=== PATIENT | male | born 1950 | race Hispanic/Latino ===

== ENCOUNTER → 2019-04-02 | Outpatient (CLI) | payer OTHER, MEDICARE ==
--- NOTE | 2019-04-02 10:30 | NUR ---
MBSS COMPLETE. +S/S OF ASPIRATION WITH MIXED AND NON-TRANSIENT PENETRATION WITH THIN LIQUIDS. RECOMMEND MECHANICAL SOFT/CHOPPED, NECTAR-THICK LIQUID DIET; PILLS WHOLE WITH APPLESAUCE. PATIENT INFORMATION: Pt IS A 68 Y.O. MALE REFERRED FOR AN MBSS SECONDARY TO C/O CHOKING WITH FOOD. Pt WAS ACCOMPANIED BY SON TO MBSS. Pt WITH OBVIOUS DYSARTHRIC SPEECH AND SLOW AMBULATION REQUIRING CANE. Pt HAS A PAST MEDICAL HISTORY OF CVA X3 IN 1999, GERD. MBSS INTERPRETATION: Pt PRESENTS WITH MODERATE OROPHARYNGEAL DYSPHAGIA CAUSED BY DECREASED ORAL MOTOR COORDINATION, DECREASED TONGUE BASE RETRACTION, DELAYED PHARYNGEAL RESPONSE TIME, DECREASED HYO-LARYNGEAL APPROXIMATION, E/B POOLING IN TH VALLECULAE, INCREASED MASTICATION TIME, DECREASED ROTARY MOTION DURING MASTICATION, RESULTING IN EVA ASPIRATION WITH MIXED TEXTURE (COUGH RESPONSE), NON-TRANSIENT PENETRATION WITH THIN LIQUIDS VIA CUP SIP (SILENT). TRIALS: 1. TSP PUREED: GOOD 2. TSP PUDDING: GOOD 3. TSP MIXED: EVA ASPIRATION WITH COUGH RESPONSE 4. COOKIE: GOOD 5. CUP SIP THIN LIQUIDS: NON-TRANSIENT PENETRATION (SILENT) 6. CUP SIP NECTAR-THICK LIQUIDS: GOOD 7. CUP SIP NECTAR-THICK LIQUIDS: GOOD RECOMMENDATIONS: 1. MECHANICAL SOFT/CHOPPED, NECTAR-THICK LIQUID DIET; PILLS WHOLE WITH APPLESAUCE. 2. COMPENSATORY STRATEGIES (PROPHYLAXIS): *SEATED AT 90 DEGREE ANGLE *REMAIN UPRIGHT 30 MINUTES AFTER MEAL TIMES *NO MIXED TEXTURE *NO STRAW *RE-SWALLOW 3. SKILLED SPEECH THERAPY 2XWK TARGETING SWALLOWING G-CODES SWALLOWING: [id number] Addendum: 04/02/19 at 1424 by SUMI DILLARD, [facility] Amended: Links added.
== END | disposition home or self-care (01) ==
LOC: RAH 10:44
PROVIDERS: ATTEND Internal Medicine Gastroenterology
DX: R13.12 Dysphagia, oropharyngeal phase (principal); K21.9 Gastro-esophageal reflux disease without esophagitis
CPT/HCPCS: G8996; G8997; G8998; 74230; 92611

== ENCOUNTER 2019-04-08 07:24 | Day surgery (SDC) | payer OTHER, MEDICARE ==
[~2019-04-08] VITALS: Ht 154.9 cm; Wt 72.8 kg
[~2019-04-08 07:24] MED LIST: SODIUM CHLORIDE 0.9% 1000ML 1,000 ML IV ONE
[2019-04-08] MEDS ORDERED: OMEP-50 PO (08:48)
[2019-04-08] MEDS ORDERED: SIMV20TA6 PO (08:48)
[2019-04-08] MEDS ORDERED: VITAMIN D2 PO (08:48)
[2019-04-08] MEDS ORDERED: AMLO10TA7 PO (08:48)
[2019-04-08] MEDS ORDERED: FISH1CAP27 PO (08:48)
[2019-04-08] MEDS ORDERED: LISI40TA4 PO (08:48)
[2019-04-08] MEDS ORDERED: OXYB5TAB10 PO (08:48)
[2019-04-08] MEDS ORDERED: ASPI-555 PO (08:48)
[2019-04-08] MEDS ORDERED: METFORMIN (08:49)
[2019-04-08 10:22] VITALS: BP 166/66
[2019-04-08 11:50] VITALS: BP 117/68
[2019-04-08 11:55] VITALS: BP 119/67
[2019-04-08 12:00] VITALS: BP 100/67
[2019-04-08 12:05] VITALS: BP 108/67
== END 2019-04-08 12:10 | disposition home or self-care (01) ==
LOC: ENDO 07:24 → DAH 07:24 → ENDO 12:10
PROVIDERS: ATTEND Internal Medicine
DX: K29.50 Unspecified chronic gastritis without bleeding (principal); K44.9 Diaphragmatic hernia without obstruction or gangrene; K22.8 Other specified diseases of esophagus; K31.89 Other diseases of stomach and duodenum; R00.1 Bradycardia, unspecified; R13.12 Dysphagia, oropharyngeal phase; I10 Essential (primary) hypertension; K21.9 Gastro-esophageal reflux disease without esophagitis; E11.9 Type 2 diabetes mellitus without complications; Z86.73 Personal history of transient ischemic attack (TIA), and cerebral infarction without residual deficits; Z79.84 Long term (current) use of oral hypoglycemic drugs; Z79.82 Long term (current) use of aspirin; Z79.899 Other long term (current) drug therapy
CPT/HCPCS: 43239; 82948 ×2; 88305; 93005; A4606; J7030

== ENCOUNTER 2020-04-24 13:20 | Inpatient (IN) | payer OTHER, MEDICARE ==
[~2020-04-24] VITALS: Ht 157.5 cm; Wt 61.2 kg
[~2020-04-24 13:20] MED LIST changes: +AMLO10TA7 PO; +ASPI-556 PO; +FISH1CAP27 PO; +LISI40TA4 PO; +METFORMIN; +OMEP20CA12 PO; +OXYB5TAB15 PO; +SIMV-43 PO; -SODIUM CHLORIDE 0.9% 1000ML 1,000 ML IV ONE; +VITAMIN D2 PO
[2020-04-24 14:56] LABS: BASOPHILS % (AUTO) 0.2 % (0.0-5.0); EOSINOPHILS % (AUTO) 0.1 % (0.0-8.0); HEMATOCRIT 32.4 % (42-54); LYMPHOCYTES % (AUTO) 10.8 % (21.0-51.0); MEAN CORPUSCULAR HEMOGLOBIN 31.3 pg (27.0-33.0); MONOCYTES % (AUTO) 4.6 % (3.0-13.0); NEUTROPHILS % (AUTO) 83.8 % (40.0-77.0); PLATELET COUNT (AUTO) 289 K/uL (130-400); RED BLOOD CELL COUNT(AUTO) 3.52 MIL/uL (4.50-6.20); RED CELL DISTRIBUTION WIDTH 12.9 % (11.0-15.5); WHITE BLOOD COUNT (AUTO) 12.5 K/uL (4.8-10.8)
[2020-04-24 15:09] LABS: INR 1.02 (0.85-1.15); PARTIAL THROMBOPLASTIN TIME 30.8 SEC (26.3-35.5)
[2020-04-24 15:13] LABS: ABG HCO3 19.8 mmol/L (21.0-28.0); ABG OXYGEN SATURATION 96.6 % (95.0-99.0); ABG PCO2 27 mmHg (35-48)
[2020-04-24 15:18] LABS: CREATININE 1.3 mg/dL (0.5-1.5); POTASSIUM 5.7 mmol/L (3.5-5.1)
[2020-04-24] MEDS ORDERED: DOXYCYCLINE 100MG+NS 250ML 250 ML IV ONE (15:19)
[2020-04-24] MEDS ORDERED: DEXAMETHASONE SOD PHOSPHATE 10MG/ML 1ML VIAL ONE (15:19)
[2020-04-24 15:46] LABS: ALBUMIN 2.4 g/dL (3.5-5.0); BILIRUBIN,TOTAL 0.4 mg/dL (0.2-1.0); TOTAL PROTEIN, SERUM 7.7 g/dL (6.0-8.3)
[2020-04-24 15:52] LABS: TROPONIN I 2.6 ng/mL (0.00-0.06)
[2020-04-24] MEDS ORDERED: INSULIN HUMULIN R 100 UNIT/ML 3ML ONE (15:53)
[2020-04-24] MEDS ORDERED: NITROGLYCERIN 0.4 MG SL TAB SL PRN (17:00)
[2020-04-24] MEDS ORDERED: LACTULOSE 20 GM/30 ML UDCUP PO PRN (17:00)
[2020-04-24] MEDS ORDERED: ONDANSETRON HCL 4 MG/2 ML VIAL IV PRN (17:00)
[2020-04-24] MEDS ORDERED: ACETAMINOPHEN 325 MG TAB PO PRN (17:00)
[2020-04-24] MEDS ORDERED: ERGOCALCIFEROL (VITAMIN D2) 50,000 UNIT CAPSULE PO ONE (17:00)
[2020-04-24] MEDS: CEFTRIAXONE SODIUM 1 GM IVP SCH (17:00)
[2020-04-24] MEDS ORDERED: PHARMACY COMMUNICATION MISC SCH (17:15)
[2020-04-24] MEDS ORDERED: ERGOCALCIFEROL (VITAMIN D2) 50,000 UNIT CAPSULE ONE (17:58)
[2020-04-24] MEDS ORDERED: CEFTRIAXONE SODIUM 1 GM ONE (17:58)
[2020-04-24] MEDS: PHARMACY COMMUNICATION MISC SCH ×2 (18:00→22:00)
[2020-04-24] MEDS ORDERED: ASPIRIN 325 MG TABLET ONE (19:45)
[2020-04-24] MEDS ORDERED: ENOXAPARIN SODIUM 80 MG/0.8 ML SQ ONE (19:45)
[2020-04-24] MEDS ORDERED: METHYLPREDNISOLONE SOD SUCC 40MG/ML 1ML ONE (20:49)
[2020-04-24] MEDS ORDERED: FAMOTIDINE 20MG TAB 20 MG TAB ONE (20:49)
[2020-04-24] MEDS: DOXYCYCLINE HYCLATE 100 MG TABLET PO SCH (21:00)
[2020-04-24] MEDS: INSULIN HUMULIN R 100 UNIT/ML 3ML SQ SCH (21:00)
[2020-04-24] MEDS: METHYLPREDNISOLONE SOD SUCC 40MG/ML 1ML IVP SCH (21:00)
[2020-04-25] VITALS (7 sets, daily range): BP systolic 104–143; BP diastolic 63–72
[2020-04-25] MEDS: PHARMACY COMMUNICATION MISC SCH ×4 (01:00→12:40)
--- NOTE | 2020-04-25 02:31 | NUR ---
Accepting care of patient Received report from BELL Saldana and assumed care of pt. Pt stable, NAD noted or reported, pt resting in bed comfortably, respirations even and unlabored. Pt on tele monitoring, fall precautions in place. Will continue to monitor throughout shift.
[2020-04-25] MEDS: CEFTRIAXONE SODIUM 1 GM IVP SCH ×2 (04:49→18:25)
[2020-04-25] MEDS: INSULIN HUMULIN R 100 UNIT/ML 3ML SQ SCH ×4 (06:14→20:33)
[2020-04-25 06:20] LABS: BASOPHILS % (AUTO) 0.1 % (0.0-5.0); EOSINOPHILS % (AUTO) 1.5 % (0.0-8.0); HEMATOCRIT 30.3 % (42-54); LYMPHOCYTES % (AUTO) 7.2 % (21.0-51.0); MEAN CORPUSCULAR HEMOGLOBIN 31.7 pg (27.0-33.0); MEAN CORPUSCULAR HGB CONC 33.7 g/dL (32.0-36.0); MEAN CORPUSCULAR VOLUME 94.1 fL (79-99); MONOCYTES % (AUTO) 2.6 % (3.0-13.0); NEUTROPHILS % (AUTO) 88.2 % (40.0-77.0); PLATELET COUNT (AUTO) 253 K/uL (130-400); RED BLOOD CELL COUNT(AUTO) 3.22 MIL/uL (4.50-6.20); WHITE BLOOD COUNT (AUTO) 9.1 K/uL (4.8-10.8)
[2020-04-25 08:54] LABS: ALBUMIN 1.9 g/dL (3.5-5.0); BILIRUBIN,TOTAL 0.3 mg/dL (0.2-1.0); POTASSIUM 4.7 mmol/L (3.5-5.1); TOTAL PROTEIN, SERUM 6.7 g/dL (6.0-8.3)
[2020-04-25] MEDS ORDERED: ENOXAPARIN SODIUM 40 MG/0.4 ML SYRINGE SQ SCH ×2 (09:00)
[2020-04-25 09:05] LABS: TROPONIN I 1.05 ng/mL (0.00-0.06)
[2020-04-25] MEDS: ASCORBIC ACID 500 MG TAB PO SCH (09:22)
[2020-04-25] MEDS: FAMOTIDINE 20MG TAB 20 MG TAB PO SCH (09:22)
[2020-04-25] MEDS: METHYLPREDNISOLONE SOD SUCC 40MG/ML 1ML IVP SCH ×3 (09:22→20:03)
[2020-04-25] MEDS: DOXYCYCLINE HYCLATE 100 MG TABLET PO SCH ×2 (09:24→20:04)
[2020-04-25 09:26] LABS: CRP QUANTITATIVE 282.5 mg/L (0.00-9.0)
[2020-04-25] MEDS: ZINC SULFATE 220 CAPSULE PO SCH (12:36)
[2020-04-25] MEDS: ENOXAPARIN SODIUM 80 MG/0.8 ML SQ SCH ×2 (12:41→20:04)
[2020-04-25] MEDS ORDERED: COMPOUND IV REFRIGERATED 1 EACH IVSOLN MISC PRN (14:00)
[2020-04-25] MEDS ORDERED: REMDESIVIR (EUA) 520 200 MG in SODIUM CHLORIDE 0.9% 250 ML IV ONE ×2 (14:00)
--- NOTE | 2020-04-25 15:10 | NUR ---
DYSPHAGIA EVALUATION COMPLETED. +S/S OF ASPIRATION. RECOMMEND SHORT TERM ALTERNATE MEANS OF NUTRITION HYDRATION. PINION STAKER EDUCATED PATIENT ON RISKS AND CONSEQUENCES OF ASPIRATION. PINION STAKER REVIEWED RESULTS AND RECOMMENDATIONS WITH NURSE AND PATIENT AT BEDSIDE. PATIENT VOICED UNDERSTANDING AND AGREEMENT TO SHORT TERM ALTERNATE MEANS OF NUTRITION/HYDRATION WITH RE-EVALUATION WITHIN A WEEK OR WHEN STATUS IMPROVES. PINION STAKER WILL FOLLOW PATIENT FOR RE-EVALUATION. Addendum: 04/25/[address] EVETTE GARIBAY Amended: Links added.
[2020-04-25] MEDS ORDERED: SODIUM CHLORIDE 0.9% 1,000 ML IV SCH (15:45)
--- NOTE | 2020-04-25 17:35 | NUR ---
IA- CALL TO FLOR HORTON FOR DC PLANNING TRIED TO REACH JOHN , LISTED AT PERSON TO NOTIFY, NO ANSWER, CALL TO [place] STATES PATIENT LVIES WITH JOHN, HAS BEEN ACTIVE AND INDEPENDENT WITH A CANE ONLY, BUT LATELY HAS BECOME MUCH WEAKER. HOME IS SAFE & ACCESSIBLE WITH A SHOWER CHAIR; FOLLOWS WITH DR. ETHAN Preston THREE MONTHS, SONS DRIVE WHEN NEEDED. STATES BROTHER JOHN WITH IN PROICESS OF BECOMING PATIENT'S PROVIDER, THAT WAS TO START THIS MONTH- DOESN'T KNOW HOW MANY HOURS. DCP IS DEFINITELY TO HOME, CM TO FOLLOW JOHN CALLED SHORTLY AFTER AND UPDATED ON PLAN OF CARE. EMPHASIZED HE WAS THE PERSON TO NOTIFY FOR FATHERS STATUS Addendum: 04/26/20 at 0939 by HECTOR KEENE RN CM Amended: Links added.
[2020-04-25] MEDS: CLINDAMYCIN 600 MG/D5% WATER 50 ML IV SCH (22:05)
[2020-04-26 04:09] VITALS: BP 122/71
[2020-04-26] MEDS: CLINDAMYCIN 600 MG/D5% WATER 50 ML IV SCH ×3 (05:03→20:06)
[2020-04-26] MEDS: CEFTRIAXONE SODIUM 1 GM IVP SCH ×2 (05:03→16:01)
[2020-04-26] MEDS: PHARMACY COMMUNICATION MISC SCH (05:19)
[2020-04-26] MEDS: INSULIN HUMULIN R 100 UNIT/ML 3ML SQ SCH ×4 (06:08→21:00)
[2020-04-26 07:00] VITALS: BP 130/78
[2020-04-26 07:04] LABS: HEMATOCRIT 29.8 % (42-54); LYMPHOCYTES % (AUTO) 5.6 % (21.0-51.0); MEAN CORPUSCULAR HEMOGLOBIN 31.1 pg (27.0-33.0); MEAN CORPUSCULAR HGB CONC 33.6 g/dL (32.0-36.0); MEAN CORPUSCULAR VOLUME 92.5 fL (79-99); MONOCYTES % (AUTO) 3.2 % (3.0-13.0); NEUTROPHILS % (AUTO) 90.8 % (40.0-77.0); PLATELET COUNT (AUTO) 306 K/uL (130-400); RED BLOOD CELL COUNT(AUTO) 3.22 MIL/uL (4.50-6.20); RED CELL DISTRIBUTION WIDTH 12.9 % (11.0-15.5); WHITE BLOOD COUNT (AUTO) 12.1 K/uL (4.8-10.8)
[2020-04-26 07:38] LABS: BILIRUBIN,TOTAL 0.2 mg/dL (0.2-1.0); CREATININE 0.8 mg/dL (0.5-1.5); CRP QUANTITATIVE 170.3 mg/L (0.00-9.0); POTASSIUM 4.1 mmol/L (3.5-5.1); TOTAL PROTEIN, SERUM 6.8 g/dL (6.0-8.3)
[2020-04-26] MEDS: METHYLPREDNISOLONE SOD SUCC 40MG/ML 1ML IVP SCH ×3 (10:25→20:06)
[2020-04-26] MEDS: ASCORBIC ACID 500 MG TAB PO SCH (10:26)
[2020-04-26] MEDS: ASPIRIN 81MG TAB.CHEW PO SCH (10:26)
[2020-04-26] MEDS: ENOXAPARIN SODIUM 80 MG/0.8 ML SQ SCH ×2 (10:26→20:06)
[2020-04-26] MEDS: FAMOTIDINE 20MG TAB 20 MG TAB PO SCH (10:26)
[2020-04-26] MEDS: DOXYCYCLINE HYCLATE 100 MG TABLET PO SCH ×2 (10:26→20:06)
[2020-04-26] MEDS: ZINC SULFATE 220 CAPSULE PO SCH (10:29)
[2020-04-26 11:00] VITALS: BP 125/73
[2020-04-26] MEDS ORDERED: COMPOUND IV REFRIGERATED 1 EACH IVSOLN MISC PRN (12:15)
[2020-04-26] MEDS: REMDESIVIR (EUA) 520 100 MG in SODIUM CHLORIDE 0.9% 250 ML IV SCH (13:45)
--- NOTE | 2020-04-26 14:02 | NUR ---
RD NOTIFICATION - TUBE FEEDING Recommend Continuous tube feeding Vital AF 1.2 initiated at 15mls/hr. Goal rate of 45mls/hr. Flushes at 100mls Q6hrs. Recommendations faxed to [facility]B, ext [phone], RN notified. NUTRITION NOTE: Pt admitted with Respiratory failure. Positive for COVID-19. S/p ST eval;+S/S Aspiration, short term alternate means nutrition recommended. WBC 12.1, BG 179, ALb 2.0. RD to continue to monitor. Please notify as additional nutrition concerns arise. Thank you.
--- NOTE | 2020-04-26 14:46 | NUR ---
AT REQUEST OF RN MD , GETTER OPERATOR- CALL AT BEDSIDE TO DISCUSS ADVANCE DIRECTIVES WITH FLOR LOPEZ AND PATIENT, ON NON REBREATHER, ALERT AND ORIENTED RN GALDINO NEEDED TO EXPLAIN TO PATIENT HIS CHANCES OF BEING INTUBATED WERE HIGH. THIS CM GOT FLOR LOPEZ ON THE PHONE AND ADVANCE DIRECTIVES DISCUSSED WITH SON ON SPEAKER, EXPLAINING THE DIFFICULTY PATIENT HAD BREATHING. WHEN SON ASKED PATIENT DIRECTLY HOW HE WAS, PATIENT STATED "[place]"' SON ADVISED PATIENT TO SEB KRISHNAMURTHY; WHEN QUESTIONED PATIENT NODDED YES THAT HE WANTED TO BE ON A BREATHING MACHINE IF HE NEEDED IT. PATIENT ALSO VOICED THIS, BUT IT WAS HARD TO HEAR HIM. SON CONFIRMED THEIR DECISION VIA PHONE SON STATED- 'YOU DON'T UNDERSTAND, YOU SEE MY DAD HAS TO COME HOME SO HE CAN GO TO [place]' RN AND ADVISED PATIENT AND SON THAT MD WOULD CONTINUE TO AGGRESSIVELY TREAT PATIENTS BREATHING DIFFICULTIES PER THEIR WISHES Addendum: 04/26/20 at 1654 by HECTOR KEENE RN Amended: Links added.
[2020-04-26 16:00] VITALS: BP 115/69
[2020-04-26 20:00] VITALS: BP 118/70
[2020-04-27] VITALS: BP 112/62
[2020-04-27] MEDS: CLINDAMYCIN 600 MG/D5% WATER 50 ML IV SCH ×3 (03:54→20:13)
[2020-04-27] MEDS: CEFTRIAXONE SODIUM 1 GM IVP SCH ×2 (03:54→17:41)
[2020-04-27 04:00] VITALS: BP 128/75
[2020-04-27 04:19] LABS: HEMATOCRIT 31.9 % (42-54); LYMPHOCYTES % (AUTO) 8.5 % (21.0-51.0); MEAN CORPUSCULAR HEMOGLOBIN 30.9 pg (27.0-33.0); MEAN CORPUSCULAR HGB CONC 32.9 g/dL (32.0-36.0); MEAN CORPUSCULAR VOLUME 93.8 fL (79-99); PLATELET COUNT (AUTO) 305 K/uL (130-400); RED CELL DISTRIBUTION WIDTH 13.2 % (11.0-15.5); WHITE BLOOD COUNT (AUTO) 7.9 K/uL (4.8-10.8)
[2020-04-27 04:58] LABS: BILIRUBIN,TOTAL 0.2 mg/dL (0.2-1.0); CREATININE 0.9 mg/dL (0.5-1.5); CRP QUANTITATIVE 89.4 mg/L (0.00-9.0); POTASSIUM 4.3 mmol/L (3.5-5.1); TOTAL PROTEIN, SERUM 6.7 g/dL (6.0-8.3)
[2020-04-27] MEDS: INSULIN HUMULIN R 100 UNIT/ML 3ML SQ SCH ×3 (05:52→21:02)
[2020-04-27] MEDS: PHARMACY COMMUNICATION MISC SCH (05:52)
--- NOTE | 2020-04-27 06:16 | NUR ---
assessment pt. is alert and oriented times 3. no complaints of any pain. pt. is sating 98% no nonrebreather at 15 liters. ng tube with feedings at 30 now and 214T2pi flushes. am blood sugar was 193. i gave coverage. vitals stable will continue to monitor.
[2020-04-27 07:01] LABS: ABG BASE EXCESS -2.8 mmol/L (-2.0-3.0); ABG HCO3 21.2 mmol/L (21.0-28.0); ABG OXYGEN SATURATION 94.9 % (95.0-99.0); ABG PCO2 35 mmHg (35-48)
[2020-04-27 08:00] VITALS: BP 132/75
[2020-04-27] MEDS: FAMOTIDINE 20MG TAB 20 MG TAB PO SCH (09:24)
[2020-04-27] MEDS: METHYLPREDNISOLONE SOD SUCC 40MG/ML 1ML IVP SCH ×3 (09:24→20:12)
[2020-04-27] MEDS: ASCORBIC ACID 500 MG TAB PO SCH (09:25)
[2020-04-27] MEDS: DOXYCYCLINE HYCLATE 100 MG TABLET PO SCH ×2 (09:25→20:12)
[2020-04-27] MEDS: ENOXAPARIN SODIUM 80 MG/0.8 ML SQ SCH ×2 (09:25→20:13)
[2020-04-27] MEDS: ASPIRIN 81MG TAB.CHEW PO SCH (09:25)
[2020-04-27 11:30] VITALS: BP 139/78
[2020-04-27] MEDS: ZINC SULFATE 220 CAPSULE PO SCH (13:37)
[2020-04-27] MEDS: REMDESIVIR (EUA) 520 100 MG in SODIUM CHLORIDE 0.9% 250 ML IV SCH (13:38)
[2020-04-27 15:30] VITALS: BP 154/74
[2020-04-27 17:31] LABS: BASOPHILS % (AUTO) 0.2 % (0.0-5.0); HEMATOCRIT 34.1 % (42-54); LYMPHOCYTES % (AUTO) 6.3 % (21.0-51.0); MEAN CORPUSCULAR HGB CONC 33.1 g/dL (32.0-36.0); MEAN CORPUSCULAR VOLUME 93.7 fL (79-99); MONOCYTES % (AUTO) 1.2 % (3.0-13.0); NEUTROPHILS % (AUTO) 91.4 % (40.0-77.0); PLATELET COUNT (AUTO) 322 K/uL (130-400); RED BLOOD CELL COUNT(AUTO) 3.64 MIL/uL (4.50-6.20); RED CELL DISTRIBUTION WIDTH 13.1 % (11.0-15.5); WHITE BLOOD COUNT (AUTO) 6.6 K/uL (4.8-10.8)
[2020-04-27 20:22] VITALS: BP 150/70
[2020-04-28 00:17] VITALS: BP 134/68
[2020-04-28 03:38] VITALS: BP 146/72
[2020-04-28 04:26] LABS: HEMATOCRIT 33.1 % (42-54); LYMPHOCYTES % (AUTO) 10.7 % (21.0-51.0); MEAN CORPUSCULAR HEMOGLOBIN 30.9 pg (27.0-33.0); MEAN CORPUSCULAR HGB CONC 32.9 g/dL (32.0-36.0); MEAN CORPUSCULAR VOLUME 93.8 fL (79-99); MONOCYTES % (AUTO) 4.4 % (3.0-13.0); NEUTROPHILS % (AUTO) 84.2 % (40.0-77.0); PLATELET COUNT (AUTO) 353 K/uL (130-400); RED BLOOD CELL COUNT(AUTO) 3.53 MIL/uL (4.50-6.20); RED CELL DISTRIBUTION WIDTH 13.1 % (11.0-15.5)
[2020-04-28 04:43] LABS: ALBUMIN 2.1 g/dL (3.5-5.0); BILIRUBIN,DIRECT 0.1 mg/dL (0.0-0.3); BILIRUBIN,TOTAL 0.2 mg/dL (0.2-1.0); CREATININE 0.9 mg/dL (0.5-1.5); POTASSIUM 4.5 mmol/L (3.5-5.1); TOTAL PROTEIN, SERUM 6.9 g/dL (6.0-8.3)
[2020-04-28] MEDS: CLINDAMYCIN 600 MG/D5% WATER 50 ML IV SCH ×3 (05:32→21:05)
[2020-04-28] MEDS: CEFTRIAXONE SODIUM 1 GM IVP SCH ×2 (05:32→16:58)
[2020-04-28] MEDS: PHARMACY COMMUNICATION MISC SCH (05:33)
[2020-04-28] MEDS: INSULIN HUMULIN R 100 UNIT/ML 3ML SQ SCH ×5 (05:33→21:04)
--- NOTE | 2020-04-28 06:11 | NUR ---
assessment patient alert and oriented times 4 no complaints of any pain. patient is sating upper 90's on 15 liters of oxygen per nonrebreather. pt. had a loose bowel movement this morning. vitals are stable will continue to monitor.
[2020-04-28 08:00] VITALS: BP 152/79
[2020-04-28] MEDS: ASCORBIC ACID 500 MG TAB PO SCH (08:53)
[2020-04-28] MEDS: FAMOTIDINE 20MG TAB 20 MG TAB PO SCH (08:53)
[2020-04-28] MEDS: ASPIRIN 81MG TAB.CHEW PO SCH (08:53)
[2020-04-28] MEDS: ENOXAPARIN SODIUM 80 MG/0.8 ML SQ SCH ×2 (08:53→21:06)
[2020-04-28] MEDS: DOXYCYCLINE HYCLATE 100 MG TABLET PO SCH ×2 (08:53→21:07)
[2020-04-28] MEDS: METHYLPREDNISOLONE SOD SUCC 40MG/ML 1ML IVP SCH ×3 (08:54→21:07)
--- NOTE | 2020-04-28 10:40 | NUR ---
Shift note Pt lying in bed, alert and oriented. HOB elevated 45 degrees. Denies pain at this time. Pt frequently requests water. oral care provided several times during shift. Tolerating Remdesivir tx well, alond with feedings. UOP appears to be sufficient in briefs. Will continue to monitor.
[2020-04-28 11:53] VITALS: BP 139/74
[2020-04-28] MEDS: ZINC SULFATE 220 CAPSULE PO SCH (12:30)
[2020-04-28] MEDS: REMDESIVIR (EUA) 520 100 MG in SODIUM CHLORIDE 0.9% 250 ML IV SCH (14:00)
--- NOTE | 2020-04-28 15:13 | NUR ---
DYSPHAGIA RE-EVAL COMPLETED. +S/S OF ASPIRATION WITH LIQUIDS. RECOMMEND NPO, SHORT-TERM ALTERNATE MEANS OF NUTRITION/HYDRATION. RECOMMENDATIONS: 1. SKILLED SPEECH THERAPY TARGETING SWALLOWING. DYSPHAGIA THERAPY 3-5X WEEK TO INCREASE ORAL MOTOR STRENGTH AND PHARYNGEAL SWALLOW: LTG#1: Pt WILL TOLERATE LEAST RESTRICTIVE DIET TO MEET NUTRITION/HYDRATION WITH NO S/S OF ASPIRATION. LTG#2: SKILLED EDUCATION Pt/FAMILY/STAFF STG#1: Pt WILL PARTICIPATE IN LARYNGEAL ELEVATION/EXCURSION EXERCISES WITH 80% ACCURACY. STG#2: Pt WILL PARTICIPATE IN TONGUE BASE RETRACTION EXERCISES WITH 80% ACCURACY. STG#3: Pt WILL PARTICIPATE IN ORAL MOTOR EXERCISES WITH 80% ACCURACY. STG#4: Pt WILL PARTICIPATE IN THERAPEUTIC TRIALS OF ADVANCED TEXTURE OF PUREED, HONEY-THICK LIQUIDS VIA TSP WITH NO OVERT S/S OF ASPIRATION. STG#5: PT WILL BE ABLE TO PARTICIPATE IN RE-EVALUATION OF WHEN CURRENT RESPIRATORY STATUS IMPROVES. STG#6: SKILLED EDUCATION Pt/FAMILY/STAFF. Addendum: 04/28/20 at [address] Amended: Links added.
[2020-04-28 16:00] VITALS: BP 152/78
[2020-04-28 20:16] VITALS: BP 168/85
[2020-04-28] MEDS: INSULIN GLARGINE 100 UNITS/ML 10 ML VIAL SQ SCH (21:04)
[2020-04-28] MEDS: GUAIFENESIN 600 MG TABLET.ER PO SCH (21:06)
[2020-04-28] MEDS: GABAPENTIN 100 MG CAPSULE PO SCH (21:07)
[2020-04-29 00:16] VITALS: BP 156/77
[2020-04-29 04:16] VITALS: BP 135/71
[2020-04-29 04:52] LABS: BASOPHILS % (AUTO) 0.1 % (0.0-5.0); HEMATOCRIT 33.1 % (42-54); LYMPHOCYTES % (AUTO) 12.4 % (21.0-51.0); MEAN CORPUSCULAR HEMOGLOBIN 30.5 pg (27.0-33.0); MEAN CORPUSCULAR HGB CONC 33.2 g/dL (32.0-36.0); MEAN CORPUSCULAR VOLUME 91.7 fL (79-99); MONOCYTES % (AUTO) 1.3 % (3.0-13.0); NEUTROPHILS % (AUTO) 85.3 % (40.0-77.0); PLATELET COUNT (AUTO) 363 K/uL (130-400); RED BLOOD CELL COUNT(AUTO) 3.61 MIL/uL (4.50-6.20); RED CELL DISTRIBUTION WIDTH 13.1 % (11.0-15.5); WHITE BLOOD COUNT (AUTO) 6.7 K/uL (4.8-10.8)
[2020-04-29] MEDS: CEFTRIAXONE SODIUM 1 GM IVP SCH ×2 (05:36→16:52)
[2020-04-29] MEDS: CLINDAMYCIN 600 MG/D5% WATER 50 ML IV SCH ×2 (05:36→12:07)
[2020-04-29] MEDS: PHARMACY COMMUNICATION MISC SCH (05:36)
[2020-04-29 06:10] LABS: ALBUMIN 2.3 g/dL (3.5-5.0); BILIRUBIN,TOTAL 0.2 mg/dL (0.2-1.0); CREATININE 0.9 mg/dL (0.5-1.5); CRP QUANTITATIVE 35.2 mg/L (0.00-9.0); POTASSIUM 4.8 mmol/L (3.5-5.1); TOTAL PROTEIN, SERUM 6.9 g/dL (6.0-8.3)
[2020-04-29] MEDS: INSULIN HUMULIN R 100 UNIT/ML 3ML SQ SCH ×7 (07:01→20:32)
[2020-04-29 08:04] VITALS: BP 153/86
[2020-04-29] MEDS: FAMOTIDINE 20MG TAB 20 MG TAB PO SCH (09:20)
[2020-04-29] MEDS: METHYLPREDNISOLONE SOD SUCC 40MG/ML 1ML IVP SCH ×3 (09:20→20:32)
[2020-04-29] MEDS: GUAIFENESIN 600 MG TABLET.ER PO SCH ×2 (09:20→20:32)
[2020-04-29] MEDS: DOXYCYCLINE HYCLATE 100 MG TABLET PO SCH ×2 (09:21→20:32)
[2020-04-29] MEDS: ASPIRIN 81MG TAB.CHEW PO SCH (09:21)
[2020-04-29] MEDS: ASCORBIC ACID 500 MG TAB PO SCH (09:21)
[2020-04-29] MEDS: GABAPENTIN 100 MG CAPSULE PO SCH ×2 (09:21→20:32)
[2020-04-29] MEDS: ENOXAPARIN SODIUM 80 MG/0.8 ML SQ SCH ×2 (09:22→20:33)
[2020-04-29 11:39] VITALS: BP 148/86
[2020-04-29] MEDS: ZINC SULFATE 220 CAPSULE PO SCH (12:07)
--- NOTE | 2020-04-29 12:23 | NUR ---
DYSPHAGIA RE-EVAL COMPLETED. +S/S OF ASPIRATION WITH LIQUIDS AND SOLIDS. RECOMMEND PUREED, NECTAR-THICK LIQUIDS; PILLS CRUSHED WITH APPLESAUCE. RECOMMENDATIONS: 1. SKILLED SPEECH THERAPY TARGETING SWALLOWING. DYSPHAGIA THERAPY 3-5X WEEK TO INCREASE ORAL MOTOR STRENGTH AND PHARYNGEAL SWALLOW: LTG#1: Pt WILL TOLERATE LEAST RESTRICTIVE DIET TO MEET NUTRITION/HYDRATION WITH NO S/S OF ASPIRATION. LTG#2: SKILLED EDUCATION Pt/FAMILY/STAFF STG#1: Pt WILL PARTICIPATE IN LARYNGEAL ELEVATION/EXCURSION EXERCISES WITH 80% ACCURACY. STG#2: Pt WILL PARTICIPATE IN TONGUE BASE RETRACTION EXERCISES WITH 80% ACCURACY. STG#3: Pt WILL PARTICIPATE IN ORAL MOTOR EXERCISES WITH 80% ACCURACY. STG#4: Pt WILL PARTICIPATE IN THERAPEUTIC TRIALS OF ADVANCED TEXTURE OF MECHANICAL SOFT VIA TSP WITH NO OVERT S/S OF ASPIRATION. STG#5: PT WILL TOLERATE CURRENT DIET OF PUREED, NECTAR-THICK LIQUIDS WITH NO OVERT S/S OF ASPIRATION. STG#6: SKILLED EDUCATION Pt/FAMILY/STAFF. Addendum: 04/29/20 at [address] Amended: Links added.
[2020-04-29] MEDS: REMDESIVIR (EUA) 520 100 MG in SODIUM CHLORIDE 0.9% 250 ML IV SCH (13:45)
[2020-04-29 17:00] VITALS: BP 133/77
[2020-04-29 20:16] VITALS: BP 158/79
[2020-04-29] MEDS: INSULIN GLARGINE 100 UNITS/ML 10 ML VIAL SQ SCH (21:18)
[2020-04-29] MEDS ORDERED: SODIUM CHLORIDE 0.9% 250 ML IV ONE (22:07)
[2020-04-30 00:16] VITALS: BP 163/70
[2020-04-30] MEDS ORDERED: SODIUM CHLORIDE 0.9% 250 ML IV ONE (02:26)
[2020-04-30 04:16] VITALS: BP 146/64
--- NOTE | 2020-04-30 04:20 | NUR ---
Pt completed administration of x2 plasma units; no signs/symptoms of any adverse reactions and no distress noted; pt is currently resting in bed, respirations are even and unlabored; no distress noted at this time. BELL Be
[2020-04-30] MEDS: CEFTRIAXONE SODIUM 1 GM IVP SCH ×2 (04:37→16:56)
[2020-04-30] MEDS: PHARMACY COMMUNICATION MISC SCH (04:38)
[2020-04-30 05:37] LABS: BASOPHILS % (AUTO) 0.1 % (0.0-5.0); HEMATOCRIT 30.4 % (42-54); LYMPHOCYTES % (AUTO) 12.2 % (21.0-51.0); MEAN CORPUSCULAR HEMOGLOBIN 30.8 pg (27.0-33.0); MEAN CORPUSCULAR HGB CONC 33.2 g/dL (32.0-36.0); MEAN CORPUSCULAR VOLUME 92.7 fL (79-99); MONOCYTES % (AUTO) 4.2 % (3.0-13.0); NEUTROPHILS % (AUTO) 82.8 % (40.0-77.0); PLATELET COUNT (AUTO) 280 K/uL (130-400); RED BLOOD CELL COUNT(AUTO) 3.28 MIL/uL (4.50-6.20); RED CELL DISTRIBUTION WIDTH 13.2 % (11.0-15.5); WHITE BLOOD COUNT (AUTO) 8.2 K/uL (4.8-10.8)
[2020-04-30 05:59] LABS: LACTATE DEHYDROGENASE 283 U/L (81-234)
[2020-04-30] MEDS: INSULIN HUMULIN R 100 UNIT/ML 3ML SQ SCH ×7 (06:12→21:00)
[2020-04-30 08:00] VITALS: BP 137/72
[2020-04-30] MEDS: ENOXAPARIN SODIUM 80 MG/0.8 ML SQ SCH ×2 (08:56→22:05)
[2020-04-30] MEDS: METHYLPREDNISOLONE SOD SUCC 40MG/ML 1ML IVP SCH ×3 (08:56→22:05)
[2020-04-30] MEDS: DOXYCYCLINE HYCLATE 100 MG TABLET PO SCH ×2 (08:57→22:05)
[2020-04-30] MEDS: GUAIFENESIN 600 MG TABLET.ER PO SCH ×2 (08:57→22:05)
[2020-04-30] MEDS: ASPIRIN 81MG TAB.CHEW PO SCH (08:57)
[2020-04-30] MEDS: ASCORBIC ACID 500 MG TAB PO SCH (08:57)
[2020-04-30] MEDS: FAMOTIDINE 20MG TAB 20 MG TAB PO SCH (08:57)
[2020-04-30] MEDS: GABAPENTIN 100 MG CAPSULE PO SCH ×2 (08:58→22:05)
--- NOTE | 2020-04-30 12:02 | NUR ---
PHYSICIAN ROUNDS DR FANNIE WALLACE ROUNDED ON PATIENT REVIEWED RECORDS NO NEW ORDERS RECEIVED
[2020-04-30 12:15] VITALS: BP 138/71
[2020-04-30 14:00] VITALS: BP 153/90
[2020-04-30] MEDS: ZINC SULFATE 220 CAPSULE PO SCH (15:10)
[2020-04-30 20:00] VITALS: BP 169/84
[2020-04-30] MEDS: INSULIN GLARGINE 100 UNITS/ML 10 ML VIAL SQ SCH (22:04)
[2020-05-01] VITALS: BP 153/79
[2020-05-01 04:00] VITALS: BP 138/61
[2020-05-01 05:12] LABS: LACTATE DEHYDROGENASE 249 U/L (81-234)
[2020-05-01] MEDS: CEFTRIAXONE SODIUM 1 GM IVP SCH (05:39)
[2020-05-01] MEDS: INSULIN HUMULIN R 100 UNIT/ML 3ML SQ SCH ×7 (06:00→20:40)
[2020-05-01] MEDS: GUAIFENESIN 600 MG TABLET.ER PO SCH ×2 (08:27→19:31)
[2020-05-01] MEDS: ENOXAPARIN SODIUM 80 MG/0.8 ML SQ SCH ×2 (08:27→19:31)
[2020-05-01] MEDS: ASCORBIC ACID 500 MG TAB PO SCH (08:28)
[2020-05-01] MEDS: ASPIRIN 81MG TAB.CHEW PO SCH (08:28)
[2020-05-01] MEDS: FAMOTIDINE 20MG TAB 20 MG TAB PO SCH (08:28)
[2020-05-01] MEDS: DOXYCYCLINE HYCLATE 100 MG TABLET PO SCH (08:28)
[2020-05-01] MEDS: GABAPENTIN 100 MG CAPSULE PO SCH ×2 (08:28→19:31)
[2020-05-01] MEDS: METHYLPREDNISOLONE SOD SUCC 40MG/ML 1ML IVP SCH ×3 (08:28→19:31)
[2020-05-01 09:22] VITALS: BP 153/82
--- NOTE | 2020-05-01 09:50 | NUR ---
RAYMUNDO ROSALES CERTIFIED COURT INTERPRETER IS ROUNDING AT THIS TIME. NEUROSX CONSULT STILL PENDING ORDERED BY DR. GAONA. PER CERTIFIED COURT INTERPRETER, WAIT FOR DR. Buckley TO ROUND THIS AFTERNOON AND WILL DECIDE IF NEUROSX STILL NEEDS TO BE CONSULTED.
--- NOTE | 2020-05-01 10:39 | NUR ---
WEANED PT OFF NON-REBREATHER. HE IS CURRENTLY ON 4L PER NASAL CANNULA. O2 SAT: 100%. PT IS ASLEEP AT THIS TIME. WILL CONTINUE TO MONITOR.
[2020-05-01] MEDS: AMLODIPINE BESYLATE 5 MG TAB PO SCH (11:35)
[2020-05-01] MEDS: LISINOPRIL 40 MG TABLET PO SCH (11:36)
[2020-05-01] MEDS: ZINC SULFATE 220 CAPSULE PO SCH (11:36)
[2020-05-01 12:36] VITALS: BP 137/64
--- NOTE | 2020-05-01 12:38 | NUR ---
DR. GRECO IS IN TO SEE PATIENT. PER MD, CULTURE WAS A CONTAMINANT. CONTINUE CURRENT ANTIBIOTICS.
[2020-05-01 16:00] VITALS: BP 133/66
--- NOTE | 2020-05-01 16:11 | NUR ---
SPOKE WITH DR. MEIER AND INFORMED MD OF THE CONSULT FOR COMPRESSION FX. INFORMED MD THAT PATIENT IS COVID-19 POSITIVE. PER MD, LSO BRACE MUST BE APPLIED AT THIS TIME. PT WILL HAVE TO F/U WITH HIM IN OFFICE IN 2 WEEKS. MRI OF LUMBAR SPINE ALSO ORDERED.
[2020-05-01] MEDS: INSULIN GLARGINE 100 UNITS/ML 10 ML VIAL SQ SCH (20:40)
[2020-05-01 21:10] VITALS: BP 130/68
[2020-05-02 01:00] VITALS: BP 132/69
[2020-05-02 03:15] LABS: BASOPHILS % (AUTO) 0.1 % (0.0-5.0); HEMATOCRIT 34.2 % (42-54); LYMPHOCYTES % (AUTO) 13.4 % (21.0-51.0); MEAN CORPUSCULAR HEMOGLOBIN 30.7 pg (27.0-33.0); MEAN CORPUSCULAR HGB CONC 33.6 g/dL (32.0-36.0); MEAN CORPUSCULAR VOLUME 91.4 fL (79-99); MONOCYTES % (AUTO) 4.4 % (3.0-13.0); NEUTROPHILS % (AUTO) 81.1 % (40.0-77.0); PLATELET COUNT (AUTO) 313 K/uL (130-400); RED BLOOD CELL COUNT(AUTO) 3.74 MIL/uL (4.50-6.20); RED CELL DISTRIBUTION WIDTH 13.4 % (11.0-15.5); WHITE BLOOD COUNT (AUTO) 7.7 K/uL (4.8-10.8)
[2020-05-02 03:31] LABS: ALBUMIN 2.3 g/dL (3.5-5.0); BILIRUBIN,TOTAL 0.2 mg/dL (0.2-1.0); CREATININE 0.7 mg/dL (0.5-1.5); CRP QUANTITATIVE 8.9 mg/L (0.00-9.0); POTASSIUM 4.4 mmol/L (3.5-5.1); TOTAL PROTEIN, SERUM 6.4 g/dL (6.0-8.3)
[2020-05-02] MEDS: INSULIN HUMULIN R 100 UNIT/ML 3ML SQ SCH ×7 (05:25→21:30)
[2020-05-02 06:09] VITALS: BP 122/57
--- NOTE | 2020-05-02 06:39 | NUR ---
assessment Pt. is alert and oriented times 4. No complaints of any pain. patient is sating 92% on 2 liters nasal canula. am blood sugar is 129. No coverage needed. vitals are stable will continue to monitor.
[2020-05-02 08:00] VITALS: BP 127/66
[2020-05-02] MEDS: AMLODIPINE BESYLATE 5 MG TAB PO SCH (08:44)
[2020-05-02] MEDS: GUAIFENESIN 600 MG TABLET.ER PO SCH ×2 (08:44→21:00)
[2020-05-02] MEDS: LISINOPRIL 40 MG TABLET PO SCH (08:44)
[2020-05-02] MEDS: FAMOTIDINE 20MG TAB 20 MG TAB PO SCH (08:44)
[2020-05-02] MEDS: GABAPENTIN 100 MG CAPSULE PO SCH ×2 (08:44→21:00)
[2020-05-02] MEDS: ASCORBIC ACID 500 MG TAB PO SCH (08:44)
[2020-05-02] MEDS: ASPIRIN 81MG TAB.CHEW PO SCH (08:44)
[2020-05-02] MEDS: ENOXAPARIN SODIUM 80 MG/0.8 ML SQ SCH ×2 (08:44→21:05)
[2020-05-02] MEDS: METHYLPREDNISOLONE SOD SUCC 40MG/ML 1ML IVP SCH ×3 (08:46→21:00)
[2020-05-02 11:02] VITALS: BP 122/66
[2020-05-02] MEDS: ZINC SULFATE 220 CAPSULE PO SCH (15:34)
[2020-05-02 15:55] VITALS: BP 113/55
[2020-05-02 19:55] VITALS: BP 135/62
[2020-05-02] MEDS: INSULIN GLARGINE 100 UNITS/ML 10 ML VIAL SQ SCH (21:30)
[2020-05-03 00:10] VITALS: BP 130/52
--- NOTE | 2020-05-03 02:26 | NUR ---
Pts pulse ox/HR monitor alarming for HR = 48; pt is arousable and HR increases to 53-54bbm; pt is diaphoretic, BS = 231 at this time (decrease from 333 prior to bed when pt received 7 units Humulin R and 15u lantus); pt refuses a wipe down/bedbath at this time ; pt denies any requests and/or complaints at this time; will continue to monitor throughout shift. Haile, RN
[2020-05-03] MEDS: INSULIN HUMULIN R 100 UNIT/ML 3ML SQ SCH ×7 (06:20→20:13)
[2020-05-03 06:31] VITALS: BP 122/57
[2020-05-03 06:36] LABS: BASOPHILS % (AUTO) 0.1 % (0.0-5.0); HEMATOCRIT 34.7 % (42-54); LYMPHOCYTES % (AUTO) 12.4 % (21.0-51.0); MEAN CORPUSCULAR HEMOGLOBIN 31.1 pg (27.0-33.0); MEAN CORPUSCULAR HGB CONC 33.4 g/dL (32.0-36.0); MONOCYTES % (AUTO) 3.6 % (3.0-13.0); PLATELET COUNT (AUTO) 307 K/uL (130-400); RED BLOOD CELL COUNT(AUTO) 3.73 MIL/uL (4.50-6.20); RED CELL DISTRIBUTION WIDTH 13.3 % (11.0-15.5); WHITE BLOOD COUNT (AUTO) 6.9 K/uL (4.8-10.8)
[2020-05-03 07:33] LABS: CRP QUANTITATIVE 7.2 mg/L (0.00-9.0)
[2020-05-03 08:00] VITALS: BP 125/55
[2020-05-03] MEDS: GABAPENTIN 100 MG CAPSULE PO SCH ×2 (08:41→20:12)
[2020-05-03] MEDS: ASPIRIN 81MG TAB.CHEW PO SCH (08:41)
[2020-05-03] MEDS: AMLODIPINE BESYLATE 5 MG TAB PO SCH (08:41)
[2020-05-03] MEDS: FAMOTIDINE 20MG TAB 20 MG TAB PO SCH (08:41)
[2020-05-03] MEDS: LISINOPRIL 40 MG TABLET PO SCH (08:42)
[2020-05-03] MEDS: GUAIFENESIN 600 MG TABLET.ER PO SCH ×2 (08:42→20:12)
[2020-05-03] MEDS: METHYLPREDNISOLONE SOD SUCC 40MG/ML 1ML IVP SCH ×3 (08:42→20:12)
[2020-05-03] MEDS: ASCORBIC ACID 500 MG TAB PO SCH (08:42)
[2020-05-03] MEDS: ENOXAPARIN SODIUM 80 MG/0.8 ML SQ SCH ×2 (08:43→20:14)
[2020-05-03 08:59] LABS: ALBUMIN 2.4 g/dL (3.5-5.0); BILIRUBIN,TOTAL 0.3 mg/dL (0.2-1.0); CREATININE 0.9 mg/dL (0.5-1.5); POTASSIUM 4.7 mmol/L (3.5-5.1); TOTAL PROTEIN, SERUM 6.1 g/dL (6.0-8.3)
[2020-05-03 12:00] VITALS: BP 127/55
[2020-05-03] MEDS: ZINC SULFATE 220 CAPSULE PO SCH (12:21)
--- NOTE | 2020-05-03 12:37 | NUR ---
DR. GRECO IN TO SEE PT. WANTS PT TO START WORKING WITH PT.
--- NOTE | 2020-05-03 13:29 | NUR ---
FOLLOW UP. Pt SLEEPING AT THE TIME OF THE SESSION. HOLD TREATMENT, NO FOOD OR LIQUID PROVIDED. OUTSIDE MACHINIST HELPER COORDINATED WITH NURSE ASHLEE. NURSE REPORTS Pt WAS ABLE TO FEED HIMSELF THIS AM. Pt TOLERATING PUREED AND NECTAR-THICK LIQUIDS. RECOMMEND CONTINUED DIET. Pt CURRENTLY ON NASAL CANNULA, IMPROVED RESPIRATORY SUPPORT. OUTSIDE MACHINIST HELPER WILL CONTINUE TO FOLLOW Pt. Addendum: 05/03/20 at 1331 by SUMI DILLARD, [facility] Amended: Links added.
--- NOTE | 2020-05-03 13:55 | NUR ---
RE: LSO BRACE PURCHASE ORDER FORM FILLED OUT AND SUBMITTED TO [employer].
[2020-05-03 16:00] VITALS: BP 125/64
[2020-05-03 19:30] VITALS: BP 119/52
[2020-05-03] MEDS: INSULIN GLARGINE 100 UNITS/ML 10 ML VIAL SQ SCH (20:14)
[2020-05-04] VITALS: BP 130/59
--- NOTE | 2020-05-04 05:23 | NUR ---
assessment pt. is alert and oriented times 4 no complaints of any pain. patient is sating mid 90's on 2 liters nasal canula. pm blood sugar last night was 248 i covered him with insulin. vitals are stable will continue to monitor.
[2020-05-04] MEDS: INSULIN HUMULIN R 100 UNIT/ML 3ML SQ SCH ×7 (05:36→21:11)
[2020-05-04 06:16] LABS: CRP QUANTITATIVE 5.2 mg/L (0.00-9.0)
[2020-05-04 06:30] VITALS: BP 116/60
[2020-05-04 08:30] VITALS: BP 136/60
[2020-05-04] MEDS: GUAIFENESIN 600 MG TABLET.ER PO SCH ×2 (09:41→20:16)
[2020-05-04] MEDS: GABAPENTIN 100 MG CAPSULE PO SCH ×2 (09:41→20:16)
[2020-05-04] MEDS: FAMOTIDINE 20MG TAB 20 MG TAB PO SCH (09:41)
[2020-05-04] MEDS: AMLODIPINE BESYLATE 5 MG TAB PO SCH (09:42)
[2020-05-04] MEDS: METHYLPREDNISOLONE SOD SUCC 40MG/ML 1ML IVP SCH ×3 (09:42→20:16)
[2020-05-04] MEDS: LISINOPRIL 40 MG TABLET PO SCH (09:42)
[2020-05-04] MEDS: ASCORBIC ACID 500 MG TAB PO SCH (09:42)
[2020-05-04] MEDS: ASPIRIN 81MG TAB.CHEW PO SCH (09:42)
[2020-05-04] MEDS: ENOXAPARIN SODIUM 80 MG/0.8 ML SQ SCH ×2 (09:43→20:16)
[2020-05-04 11:29] LABS: HEMATOCRIT 36.5 % (42-54); MEAN CORPUSCULAR HEMOGLOBIN 31.2 pg (27.0-33.0); MEAN CORPUSCULAR HGB CONC 32.3 g/dL (32.0-36.0); MEAN CORPUSCULAR VOLUME 96.6 fL (79-99); RED BLOOD CELL COUNT(AUTO) 3.78 MIL/uL (4.50-6.20); RED CELL DISTRIBUTION WIDTH 13.9 % (11.0-15.5); WHITE BLOOD COUNT (AUTO) 9.6 K/uL (4.8-10.8)
[2020-05-04] MEDS: ZINC SULFATE 220 CAPSULE PO SCH (12:07)
[2020-05-04 12:30] VITALS: BP 136/67
--- NOTE | 2020-05-04 15:17 | NUR ---
Reminded BELL Rebolledo to remove patient's back brace before her shift ends. Addendum: 05/04/20 at 1519 by MERCEDES HA, PT PT Amended: Links added.
[2020-05-04 16:00] VITALS: BP 134/67
[2020-05-04 20:05] VITALS: BP 121/53
[2020-05-04] MEDS: INSULIN GLARGINE 100 UNITS/ML 10 ML VIAL SQ SCH (21:11)
[2020-05-05] VITALS (7 sets, daily range): BP systolic 108–156; BP diastolic 48–70
[2020-05-05] MEDS: INSULIN HUMULIN R 100 UNIT/ML 3ML SQ SCH ×7 (05:34→20:10)
[2020-05-05] MEDS: METHYLPREDNISOLONE SOD SUCC 40MG/ML 1ML IVP SCH ×3 (08:39→19:56)
[2020-05-05] MEDS: LISINOPRIL 40 MG TABLET PO SCH (08:39)
[2020-05-05] MEDS: ASCORBIC ACID 500 MG TAB PO SCH (08:39)
[2020-05-05] MEDS: FAMOTIDINE 20MG TAB 20 MG TAB PO SCH (08:39)
[2020-05-05] MEDS: AMLODIPINE BESYLATE 5 MG TAB PO SCH (08:39)
[2020-05-05] MEDS: GUAIFENESIN 600 MG TABLET.ER PO SCH ×2 (08:40→19:56)
[2020-05-05] MEDS: GABAPENTIN 100 MG CAPSULE PO SCH ×2 (08:40→19:56)
[2020-05-05] MEDS: ASPIRIN 81MG TAB.CHEW PO SCH (08:40)
[2020-05-05] MEDS: ENOXAPARIN SODIUM 80 MG/0.8 ML SQ SCH ×2 (08:40→19:56)
[2020-05-05] MEDS: LIDOCAINE 5% TOPICAL PATCH TP SCH (12:44)
[2020-05-05] MEDS: ZINC SULFATE 220 CAPSULE PO SCH (12:44)
--- NOTE | 2020-05-05 14:57 | NUR ---
TREATMENT COMPLETED. S: Pt SEATED AT 90 DEGREES DURING SESSION. Pt COOPERATIVE WITH ALL ACTIVITIES. NURSE PARIS, REPORTS Pt WAS ABLE TO SELF-FEED TODAY. O: Pt CURRENT TARGETING SWALLOWING GOALS. RESULTS ARE FOLLOWS: STG#4: Pt WILL PARTICIPATE IN THERAPEUTIC TRIALS OF ADVANCED TEXTURE OF MECHANICAL SOFT VIA TSP WITH NO OVERT S/S OF ASPIRATION: +S/S OF ASPIRATION OF COUGH RESPONSE WITH THIN LIQUIDS VIA TSP. STG#5: PT WILL TOLERATE CURRENT DIET OF PUREED, NECTAR-THICK LIQUIDS WITH NO OVERT S/S OF ASPIRATION: TRIALS OF PUDDING AND NECTAR-THICK LIQUIDS X10 PROVIDED WITH NO OVERT S/S OF ASPIRATION. LARYNGEAL ELEVATION/EXCURSION PRESENT DURING MANUAL PALPATION. STG#6: SKILLED EDUCATION Pt/FAMILY/STAFF: COMPLETED WITH Pt A: Pt TOLERATING CURRENT DIET WITH 100% INTAKE. NO OVERT S/S OF ASPIRATION AT THIS TIME. P: RECOMMEND CONTINUED PUREED, NECTAR-THICK LIQUIDS; PILLS CRUSHED, SEATED AT 90 DEGREES, SLOW RATE. RECOMMEND CONTINUED SKILLED SPEECH THERAPY TOLERATED. SHIRT CLEANER WILL CONTINUE TO FOLLOW Pt. SHIRT CLEANER COORDINATED WITH NURSE PARIS. Addendum: 05/05/20 at 1502 by SUMI DILLARD [facility] Amended: Links added.
--- NOTE | 2020-05-05 16:20 | NUR ---
CM NOTE/DECLINED SNF PER RAINA LUU, PATIENT AAOX3. MEET WITH PATIENT IN ROOM TO DISCUSS SNF REFERRAL, PATIENT DECLINED REFERRAL AND FEELS MORE COMFORTABLE AT HOME. SON, JOHN COOPER, CALLED TO INFORM OF PATIENT DECISION. PER SON, OK WITH TAKING HIM BACK HOME. INFORMED SON THAT HE MIGHT BE ELIGIBLE FOR HOME HEALTH PHYSICAL THERAPY, I CALLED DR. DICKSON OFFICE TO CONFIRM. PER NURSE AT [facility], PATIENT MUST HAVE A FACE TO FACE WITH MD BEFORE REFERRAL GIVEN. SON, JOHN INFORMED. PRIMARY NURSE, RAINA LUU, MADE AWARE. HEATHER PRAJAPATI DOUBLE END TENON OPERATOR ALSO MADE AWARE OF DECISION TO GO HOME AND TO FOLLOW UP WITH THEIR PCP FOR HOME HEALTH REFERRAL.
[2020-05-05] MEDS: INSULIN GLARGINE 100 UNITS/ML 10 ML VIAL SQ SCH (20:10)
[2020-05-06 03:44] LABS: HEMATOCRIT 32.9 % (42-54); LYMPHOCYTES % (AUTO) 12.3 % (21.0-51.0); MEAN CORPUSCULAR HEMOGLOBIN 31.3 pg (27.0-33.0); MEAN CORPUSCULAR HGB CONC 33.4 g/dL (32.0-36.0); MEAN CORPUSCULAR VOLUME 93.5 fL (79-99); MONOCYTES % (AUTO) 5.6 % (3.0-13.0); NEUTROPHILS % (AUTO) 81.2 % (40.0-77.0); PLATELET COUNT (AUTO) 256 K/uL (130-400); RED BLOOD CELL COUNT(AUTO) 3.52 MIL/uL (4.50-6.20); RED CELL DISTRIBUTION WIDTH 13.8 % (11.0-15.5); WHITE BLOOD COUNT (AUTO) 8.9 K/uL (4.8-10.8)
[2020-05-06 03:58] VITALS: BP 108/51
[2020-05-06 04:03] LABS: CREATININE 0.8 mg/dL (0.5-1.5); POTASSIUM 4.5 mmol/L (3.5-5.1)
[2020-05-06] MEDS: INSULIN HUMULIN R 100 UNIT/ML 3ML SQ SCH ×4 (05:53→12:47)
--- NOTE | 2020-05-06 06:39 | NUR ---
assessment pt. alert and oriented times 4 no complaints of any pain. patient is sating mid 90's on 2 liters nasal canula. am blood sugar is 159. no coverage needed. will get 10 units of insulin when his breakfast arrives. heart rate over night was still in the low 40's. otherwise vitals were stable will continue to monitor.
[2020-05-06 07:00] VITALS: BP 126/59
[2020-05-06] MEDS: GUAIFENESIN 600 MG TABLET.ER PO SCH (09:02)
[2020-05-06] MEDS: ASPIRIN 81MG TAB.CHEW PO SCH (09:02)
[2020-05-06] MEDS: FAMOTIDINE 20MG TAB 20 MG TAB PO SCH (09:03)
[2020-05-06] MEDS: AMLODIPINE BESYLATE 5 MG TAB PO SCH (09:03)
[2020-05-06] MEDS: ASCORBIC ACID 500 MG TAB PO SCH (09:03)
[2020-05-06] MEDS: GABAPENTIN 100 MG CAPSULE PO SCH (09:04)
[2020-05-06] MEDS: METHYLPREDNISOLONE SOD SUCC 40MG/ML 1ML IVP SCH ×2 (09:04→14:00)
[2020-05-06] MEDS: LISINOPRIL 40 MG TABLET PO SCH (09:04)
[2020-05-06] MEDS: LIDOCAINE 5% TOPICAL PATCH TP SCH (09:05)
[2020-05-06] MEDS: ENOXAPARIN SODIUM 80 MG/0.8 ML SQ SCH (09:05)
[2020-05-06 11:00] VITALS: BP 129/57
[2020-05-06] MEDS: ZINC SULFATE 220 CAPSULE PO SCH (12:48)
--- NOTE | 2020-05-06 14:13 | NUR ---
BRIGIDA NOTE/DID NOT QUALIFY FOR HOME 02 SEE RESPIRATORY HOME OXYGEN TEST, PATIENT TO DC HOME TODAY ON ROOM AIR. Addendum: 05/06/20 at 1734 by JIE DE SOUZA RN CM ERROR.
[2020-05-06] MEDS ORDERED: GABA100C PO (14:21)
[2020-05-06] MEDS ORDERED: ASPI-1005 PO (14:21)
--- NOTE | 2020-05-06 15:30 | NUR ---
CM NOTE/HOME OXYGEN PATIENT SEE BY RT FOR HOME OXYGEN EVALUATION, QUALIFIED. REQUEST FOR HOME OXYGEN FAXED AND RECEIVED AT [facility], [facility] TO LEND OXYGEN CONCENTRATOR AND PORTABLE OXYGEN TANK FOR SAFE DISCHARGE HOME. SONJOHN, AWARE TO RETURN PORTABLE TANK MANASA AND TO RETURN HOME CONCENTRATOR WHEN CONCENTRATOR FROM [facility] RECEIVED. PRIMARY NURSE, ML LUU, MADE AWARE.
--- NOTE | 2020-05-06 16:39 | NUR ---
1610 pt off the floor via wheelchair and staff in stable condition. Son to transport pt home. Discharge information sent with pt for family to review. Call placed to son to discuss follow up information, son verbalized an understanding of reviewed material.
--- NOTE | 2020-05-06 16:42 | NUR ---
Pt has therapeutic brace on upon DC and belongings.
== END 2020-05-06 16:20 | disposition home or self-care (01) | DRG 177 ==
LOC: EDH 13:20 → EDHIP 16:55 → 4BH 22:18
PROVIDERS: ADMIT Hospitalist; ATTEND Hospitalist
PROC: XW033E5 Introduction of Remdesivir Anti-infective into Peripheral Vein, Percutaneous Approach, New Technology Group 5 (ICD-10-PCS; 2020-04-28)
PROC: XW13325 Transfusion of Convalescent Plasma (Nonautologous) into Peripheral Vein, Percutaneous Approach, New Technology Group 5 (ICD-10-PCS; principal; 2020-04-29)
DX: U07.1 COVID-19 (principal); J96.01 Acute respiratory failure with hypoxia; J12.89 Other viral pneumonia; I21.4 Non-ST elevation (NSTEMI) myocardial infarction; E87.5 Hyperkalemia; E11.9 Type 2 diabetes mellitus without complications; R29.6 Repeated falls; D17.1 Benign lipomatous neoplasm of skin and subcutaneous tissue of trunk; D64.9 Anemia, unspecified; E78.5 Hyperlipidemia, unspecified; I11.9 Hypertensive heart disease without heart failure; R13.10 Dysphagia, unspecified; W18.09XA Striking against other object with subsequent fall, initial encounter; M54.5 Low back pain; W18.30XA Fall on same level, unspecified, initial encounter; Y93.89 Activity, other specified; Y99.8 Other external cause status; Y92.009 Unspecified place in unspecified non-institutional (private) residence as the place of occurrence of the external cause; Z74.01 Bed confinement status; Z83.3 Family history of diabetes mellitus; Z82.5 Family history of asthma and other chronic lower respiratory diseases; Z82.3 Family history of stroke; Z82.49 Family history of ischemic heart disease and other diseases of the circulatory system
CPT/HCPCS: 36415; 36430; 36600; 70450; 70551; 71045; 72125; 72128; 72131; 72148; 72170; 80048; 80053; 82140; 82248; 82550; 82728; 82803; 82948; 83605; 83615; 83874; 84145; 84484; 85025; 85027; 85378; 85610; 85730; 86140; 86900; 86901; 86927; 87040; 87426; 92526; 92610; 93005; 94760; 97039; G0378; J0696; J1100; J1650; J1815; J2405; J2920; J3490; J7050; U0003

== ENCOUNTER 2025-08-10 08:42 | Observation (INO) | payer OTHER, MEDICAID ==
[~2025-08-10] VITALS: Ht 152.4 cm; Wt 63.6 kg
[~2025-08-10 08:42] MED LIST changes: +AMLO-258 PO; -AMLO10TA7 PO; +ASPI-1005 PO; +GABA100C PO; +LISI40TA15 PO; -LISI40TA4 PO; -OXYB5TAB15 PO; +OXYB5TAB20 PO
--- NOTE | 2025-08-10 08:51 | NUR ---
PT PLACED IN THE ROOM R
[2025-08-10] MEDS: 0.9%NACL 1000ML 1,000 ML IV ONE (09:03)
--- NOTE | 2025-08-10 09:09 | ERN ---
General Chief Complaint: Weakness Stated Complaint: WEAKNESS, DIARRHEA Time Seen by MD: 08:45 History of Present Illness Initial Comments The patient is a 75-year-old male were to the ER by family. As per the family the patient is having weakness and diarrhea for the past 3 days. The family thinks that it is because of his lactose intolerance as the patient has been drinking coffee at home. Allergies: Coded Allergies: No Known Drug Allergies (Unverified Allergy, Unknown, 04/07/19) Home Meds Active Scripts Aspirin (ASPIRIN 81MG CHEW TAB) 81 Mg Tab.chew, 162 MG PO DAILY for 14 Days, #14 TAB.CHEW 0 Refills Prov:GEGE PRAJAPATI AGACNP 05/06/20 Gabapentin (Neurontin) 100 Mg Capsule, 100 MG PO BID for 30 Days, #60 CAP 0 Refills Prov:GEGE PRAJAPATI AGACNP 05/06/20 Reported Medications [Metformin] No Conflict Check 04/08/19 Omeprazole (Omeprazole) 20 Mg Capsule.dr, 40 MG PO DAILY, CAP 04/08/19 Lisinopril (Lisinopril) 40 Mg Tablet, 40 MG PO DAILY, TAB 04/08/19 Amlodipine Besylate (Amlodipine Besylate) 10 Mg Tablet, 10 MG PO DAILY, TAB 04/08/19 Oxybutynin Chloride (Oxybutynin Chloride) 5 Mg Tablet, 5 MG PO BID, TAB 04/08/19 [Vitamin D2] No Conflict Check, 1.25 MG PO WEEKLY 04/08/19 Simvastatin (Simvastatin) 20 Mg Tablet, 20 MG PO DAILY, TAB 04/08/19 Dickey-3 Fatty Acids/Fish Oil (Dickey 3 1,000 mg Softgel) 1 Each Capsule, 1 EACH PO DAILY, CAP 04/08/19 Aspirin (Aspir 81) 81 Mg Tablet.dr, 81 MG PO DAILY, TAB 04/08/19 Past Medical History Past Medical History: Diabetes-Type II, High Cholesterol, Heart Disease, Hypertension, Stroke Medical History Other: LEFT SIDE WEAKNESS Past Surgical History: Other Surgical History Other: EYE Constitutional: (+) weakness Gastrointestinal/Abdominal: (+) nausea, (+) diarrhea Neuro: (+) weakness Review of Systems: was completed, & the rest were negative. Physical Exam General Appearance: (-) no apparent distress, (-) apparent distress, (-) mild distress, (-) moderate distress, (-) severe distress, (-) thin, (-) obese, (-) combative, (-) cachetic, (-) anxious, (-) other documentation Orientation: (+) oriented x 3 Head/Face Trauma: No Ear, Nose, Throat: (-) hearing grossly normal, (-) normal ENT inspection, (-) moist mucous membraine, (-) normal pharynx, (-) normal TM, (-) abnormal TM, (-) pharyngeal erythema, (-) sinus drainange, (-) sinus pain, (-) tonsillar exudate, (-) tonsillar swelling, (-) nasal drip, (-) nasal congestion, (-) hearing decreased, (-) dry mucous membraine, (-) other documentation Respiratory: (-) chest non-tender, (-) lungs clear, (-) well ventilated, (-) decreased breath sounds, (-) retractions, (-) abnormal breath sound, (-) crackles, (-) plerual rub, (-) rales, (-) rhonchi, (-) stridor, (-) wheezing, (- ) other documentation Heart: (-) regular, (-) no gallop, (-) murmur, (-) irregular, (-) bradycardia, (-) tachycardia, (-) systolic murmur, (-) diastolic murmur, (-) extra beats, (-) friction rub, (-) gallop/S3, (-) gallop/S4, (-) other documentation Gastrointestinal: (-) soft, (-) non-tender, (-) no organomegaly, (-) bowel sound present, (-) distended, (-) tender, (-) abnormal bowel sounds, (-) bowel sound absent, (-) rebound, (-) mcdaniel's sign, (-) guarding, (-) hernia, (-) mass, (-) pulsatile mass, (-) CVA tenderness, (-) hepatomegaly, (-) spleenomegaly, (-) other documentation, (-) McBerney's, (-) other documentation Rectal: (-) normal exam, (-) normal rectal tone, (-) heme negative stool, (-) deferred, (-) black stool, (-) blood streaked stool, (-) decreased tone, (-) heme positive stool, (-) hemorrhoids, (-) mass, (-) tenderness, (-) other Back: (-) normal inspection, (-) no CVA tenderness, (-) no vertebral tenderness, (-) CVA tenderness (R), (-) CVA tenderness (L), (-) decreased range of motion, (-) muscle spasm, (-) vertebral tenderness, (-) other Extremities: (-) normal range of motion, (-) non-tender, (-) normal inspection, (-) no pedal edema, (-) no calf tenderness, (-) normal capillary refill, (-) pelvis stable, (-) calf tenderness, (-) inflammation, (-) pedal edema, (-) slow capillary refill, (-) swelling, (-) other Neurologic/Psychiatric: (-) normal speech, (-) no motor defecits, (-) no sensory deficits, (-) ornament setter II-XII nml as tested, (-) normal gait, (-) normal mood/affect, (-) abnormal cerebellar tests, (-) abnormal gait, (-) aphasia, (-) facial droop, (-) other documentation Skin: (-) normal color, (-) warm/dry, (-) cyanosis, (-) diaphoresis, (-) jaundice, (-) mottled, (-) pallor, (-) rash Results Laboratory and Microbiology Lab and Micro Result Laboratory Tests Test 08/10/25 09:27 08/10/25 10:06 White Blood Count 6.1 K/uL (4.8-10.8) Red Blood Count 3.97 MIL/uL (4.50-6.20) L Hemoglobin 12.7 g/dL (14.0-18.0) L Hematocrit 37.1 % (42-54) L Mean Corpuscular Volume 93.5 fL (79-99) Mean Corpuscular Hemoglobin 32.0 pg (27.0-33.0) Mean Corpuscular Hemoglobin Concent 34.2 g/dL (32.0-36.0) Red Cell Distribution Width 13.2 % (11.0-15.5) Platelet Count 271 K/uL (130-400) Mean Platelet Volume 9.8 fL (7.5-10.5) Immature Granulocyte % (Auto) 0.8 % (0-1) Neutrophils (%) (Auto) 60.9 % (40.0-77.0) Lymphocytes (%) (Auto) 22.5 % (21.0-51.0) Monocytes (%) (Auto) 14.2 % (3.0-13.0) H Eosinophils (%) (Auto) 0.8 % (0.0-8.0) Basophils (%) (Auto) 0.8 % (0.0-5.0) Neutrophils # (Auto) 3.7 K/uL (1.8-7.7) Lymphocytes # (Auto) 1.4 K/uL (1.0-4.8) Monocytes # (Auto) 0.9 K/uL (0.1-1.0) Eosinophils # (Auto) 0.05 K/uL (0.00-0.70) Basophils # (Auto) 0.05 K/uL (0.00-0.20) Absolute Immature Granulocyte (auto 0.05 K/uL (0-1) Nucleated Red Blood Cells 0.0 % (0.0-0.19) Sodium Level 136 mmol/L (136-145) Potassium Level 4.1 mmol/L (3.5-5.1) Chloride Level 102 mmol/L (101-111) Carbon Dioxide Level 23 mmol/L (21-32) Blood Urea Nitrogen 37 mg/dL (7-18) H Creatinine 2.3 mg/dL (0.5-1.3) H Glomerular Filtration Rate Calc 29 mL/min (>90) Random Glucose 291 mg/dL (70-105) H Total Calcium 8.7 mg/dL (8.5-10.1) Total Bilirubin 0.2 mg/dL (0.2-1.0) Aspartate Amino Transf (AST/SGOT) 22 U/L (10-37) Alanine Aminotransferase (ALT/SGPT) 29 U/L (12-78) Alkaline Phosphatase 57 U/L (50-136) Troponin I High Sensitivity 6 ng/L (4-75) Total Protein 6.9 g/dL (6.0-8.3) Albumin 3.3 g/dL (3.5-5.0) L Lipase 119 U/L (16-77) H Urine Color YELLOW (YELLOW) Urine Appearance CLOUDY (CLEAR) H Urine pH 5.0 (5.0-8.0) Urine Specific [place] 1.028 (1.001-1.031) Urine Protein 30 mg/dL (NEGATIVE) H Urine Glucose (UA) 50 mg/dL (NEGATIVE) H Urine Ketones 5 mg/dL (NEGATIVE) H Urine Occult Blood SMALL (NEGATIVE) H Urine Nitrate NEGATIVE (NEGATIVE) Urine Bilirubin NEGATIVE mg/dL (NEGATIVE) Urine Urobilinogen 2.0 mg/dL (0.2-1.0) H Urine Leukocyte Esterase NEGATIVE Dereck/uL Urine RBC 2-5 /HPF (0-1) H Urine WBC 11-25 /HPF (0-1) H Urine Squamous Epithelial Cells RARE /HPF (0-2) Urine Non-Squamous Epithelial Cells 1 /HPF (0-2) Urine Bacteria None /HPF (None Seen) Urine Hyaline Casts 11-25 /LPF (0-1 /LPF) H Urine Yeast with Hyphae RARE /HPF (None Seen) EKG/XRAY/US/CT/MRI EKG Comment 10/2024 time 9:05 a.m. Ventricular rate 86 Sinus rhythm [place] [address] wave elevation or depression MDM MDM: Differential diagnosis: Dehydration, JAZMINE, gastroenteritis, Rationale: Tests considered and ordered secondary to shared decision making include: labs, ECG and radiology Previous outside records reviewed: Old ER visits. Risk of complication and/or morbidity or mortality of patient management: None Medications-Per medication reconciliation Need for hospitalization: Patient does meet criteria for hospitalization. Need for emergency major/minor surgery: No There are no social concerns with this patient. Prescription drug management Prescriptions will include symptomatic care Patient's prior external medical records from other ER visits were reviewed by me as indicated. Prior testing and results from previous visits were reviewed. Prior tests were taken into account with medical decision making and resource utilization, independent historian/historians were used to obtain complete medical history. I independently interpreted the test that were performed, results were reviewed by me and considered findings on radiology if ordered. Medical management and examination interpretation discussions were had by me with other qualified healthcare professionals as indicated for the patient's care. Patient has been admitted under the care of [facility] for ongoing management. ED Course Orders Procedure Category Date Status Time Cbc With Differential LAB 08/10/25 In Process 08:54 Comprehensive LAB 08/10/25 Complete Metabolic Panel 08:54 Troponin I High LAB 08/10/25 Complete Sensitivity 08:54 Urinalysis Profile LAB 08/10/25 Complete 08:54 12 Lead Ekg Tracing- EKG 08/10/25 Complete Technical 08:54 0.9%Nacl 1000ml (Ns PHA 08/10/25 Complete 1000ml) 09:00 Lipase LAB 08/10/25 Complete 08:54 Manual Differential LAB 08/10/25 In Process 09:27 Culture Urine LAURA 08/10/25 Logged 10:33 Current Medications Medications (Trade) Dose Ordered Sig/Desmond Route PRN Reason Start Time Stop Time Status Last Admin Dose Admin Sodium Chloride 1,000 ml @ 0 mls/hr ONCE ONCE IV 08/10/25 09:00 08/10/25 09:01 DC 08/10/25 09:03 Vital Signs Date Time Temp Pulse Resp B/P (MAP) Pulse Ox O2 Delivery O2 Flow Rate FiO2 08/10/25 08:57 98.2 91 18 146/62 99 Room Air* 0 21 08/10/25 08:44 98.2 91 18 146/62 99 Room Air 0 DX & DISP Disposition: Inpatient Decision to Admit Time: 10:56 Departure Impression: Primary Impression: Dehydration Additional Impressions: JAZMINE (acute kidney injury), Viral gastroenteritis Condition: Stable Referrals: JOSE ANTONIO LONG (PCP) BELINDA HU MD Aug 10, 2025 09:09 RAYMUNDO KOHLER MD Aug 10, 2025 10:39
[2025-08-10 09:31] LABS: IMMATURE GRANULOCYTE ABSOLUTE 0.05 K/uL (0-1); NUCLEATED RED BLOOD CELLS 0.0 % (0.0-0.19); PLATELET COUNT (AUTO) 271 K/uL (130-400); RED BLOOD CELL COUNT(AUTO) 3.97 MIL/uL (4.50-6.20); RED CELL DISTRIBUTION WIDTH 13.2 % (11.0-15.5); WHITE BLOOD COUNT (AUTO) 6.1 K/uL (4.8-10.8)
[2025-08-10 09:41] LABS: CREATININE 2.3 mg/dL (0.5-1.3); GLOMERULAR FILTR. RATE CALC 29.0 mL/min (>90); GLUCOSE,RANDOM 291.0 mg/dL (70-105); SODIUM SERUM 136.0 mmol/L (136-145); UREA NITROGEN, BLOOD 37.0 mg/dL (7-18)
[2025-08-10 09:46] LABS: ASPARTATE AMINOTRANSFERASE 22.0 U/L (10-37); TOTAL PROTEIN, SERUM 6.9 g/dL (6.0-8.3)
[2025-08-10 10:15] LABS: APPEARANCE,URINE CLOUDY (CLEAR); GLUCOSE, URINE (UA) 50 mg/dL (NEGATIVE); LEUKOCYTE ESTERASE ,URINE NEGATIVE Leu/uL (NEGATIVE); NITRATE,URINE NEGATIVE (NEGATIVE); OCCULT BLOOD,URINE SMALL (NEGATIVE)
[2025-08-10 10:22] LABS: ADD UA MICROSCOPIC YES
[2025-08-10 10:26] LABS: NON-SQUAMOUS EPITHELIAL CELL 1 /HPF (0-2); SQUAMOUS EPITHELIAL CELL,UR RARE /HPF (0-2); YEAST,URINE HYPHAE RARE /HPF (None Seen)
--- NOTE | 2025-08-10 10:29 | EKG ---
[facility] Test Date: 2025-08-10 Test Time: 09:05:28 Pat Name: CHRIS COOPER RUBIODepartment: [facility] Room: ED Gender: M Rumper: [id number] : [id number] Requested By: RAYMUNDO KOHLER Order Number: [id number] Reading MD: Abby Long Measurements Intervals Mack Rate: 86 P: 32 IA: 149 QRS: 8 QRSD: 85 T: 17 QT: 354 QTc: 423 Interpretive Statements Sinus rhythm Inferior infarct, old Compared to ECG 04/24/2020 14:17:36 Myocardial infarct finding now present Electronically Signed On 08-10-2025 13:49:49 FORGER HELPER by Abby Long Please click the below link to view image of tracing.
--- NOTE | 2025-08-10 11:08 | HP ---
[facility] HISTORY & PHYSICAL Date Patient Seen: Aug 10, 2025 Time of Visit: 11:07 Supervising Physician: Dr.Jairo Villanueva Primary Care Physician: Dr. Rosana Menezes Outpatient Specialists: [ ] Inpatient Consults: Dr José Miguel Villanueva (Wound Care) PROBLEM LIST: JAZMINE on ATN Gastroenteritis Sacral decubitus ulcer, POA, secondary to immobility Generalized body weakness COPD, undiagnosed, untreated CHRONIC PROBLEM LIST: Hypertension Coronary artery disease Hyperlipidemia Diabetes mellitus type 2 Cerebrovascular disease s/p cerebrovascular accident approximately 1999 resulting in left-sided hemiplegia HPI: Chelsea Kaufman is an 75-year-old gentleman patient of PCP, Dr.Carilna Menezes, health history: Hypertension, hyperlipidemia, coronary artery disease, diabetes mellitus type 2, and cerebrovascular disease s/p cerebrovascular accident approximately 1999 resulting in left side hemiplegia presents to the emergency department today, 08/10/2025 for generalized body weakness. Patient's son, patient's caregiver reports onset three days and progressively worsening. Nausea, generalized body weakness, and nauseousness has progressively worsened. Patient denies fever, chills, recent ill person contact, chest pain, shortness of the breath, constipation, recent weight loss, weight gain, and changes in urine and stool color and consistency. Vital signs: Temperature 98.2, pulse 91, respirations 18, blood pressure 146/62, oxygen saturation 99% on room air, FiO2, 21. Laboratory results: WBC 6.1, hemoglobin 12.7, hematocrit 37.1, platelets 271, sodium 136, potassium 4.1, carbon dioxide 23, BUN 37, creatinine 2.3, GFR 29, random blood glucose 291, total calcium 8.7, AST 22, ALT 29, troponin six, albumin 3.3, lipase 119. Urine, UA: Leukocyte esterase negative, nitrate negative, occult blood negative. EKG: Rhythm: Sinus rhythm. Rate 86 beats per minute. Interpretation no ST wave elevation or depression observed. This is per ED provider's note. Patient was assessed in seen as well as examined in ED Coward #9. The patient was awake alert and oriented, resting comfortably in bed, appears in no acute distress, and presents with a sacral decubitus ulcer. The patient's son reports that the patient is bed-bound and requires total assist at home. PAST MEDICAL HX: see above PAST SURGICAL HX: Bilateral interocular lenses SOCIAL HISTORY: The patient was a heavy smoker, for approximately +years, drinks alcohol in his past, and denies recreational drug use. 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 Patient also is with the family. Coded Allergies: No Known Drug Allergies (Unverified Allergy, Unknown, 04/07/19) REVIEW OF SYSTEMS: 12 point ROS reviewed with patient. Pertinent positives mentioned above. Otherwise negative. PHYSICAL EXAM: GENERAL: alert, weak, awake oriented x 3 HEENT: EOMI, Sclera non icteric, moist mucosa dry oral mucosa NECK: Supple, no JVD, trachea midline LUNGS: Breath sounds over diminished with rales and rhonchi scattered throughout no stridor present. HEART: Regular rate and rhythm. Normal S1 and S2, without murmurs ABD: Abdomen soft, nontender. Bowel sounds present EXT: No clubbing cyanosis or edema left-sided hemiplegia status post CVA 1999 NEURO: Alert and oriented to person, follows commands Vital Signs (last 8hr) Date Time Temp Pulse Resp B/P (MAP) Pulse Ox O2 Delivery O2 Flow Rate FiO2 08/10/25 08:57 98.2 91 18 146/62 99 Room Air* 0 21 08/10/25 08:44 98.2 91 18 146/62 99 Room Air 0 LABS: Hematology Labs: Test 08/10/25 09:27 Range/Units White Blood Count 6.1 4.8-10.8 K/uL Red Blood Count 3.97 L 4.50-6.20 MIL/uL Hemoglobin 12.7 L 14.0-18.0 g/dL Hematocrit 37.1 L 42-54 % Mean Corpuscular Volume 93.5 79-99 fL Mean Corpuscular Hemoglobin 32.0 27.0-33.0 pg Mean Corpuscular Hemoglobin Concent 34.2 32.0-36.0 g/dL Red Cell Distribution Width 13.2 11.0-15.5 % Platelet Count 271 130-400 K/uL Mean Platelet Volume 9.8 7.5-10.5 fL Immature Granulocyte % (Auto) 0.8 0-1 % Neutrophils (%) (Auto) 60.9 40.0-77.0 % Lymphocytes (%) (Auto) 22.5 21.0-51.0 % Monocytes (%) (Auto) 14.2 H 3.0-13.0 % Eosinophils (%) (Auto) 0.8 0.0-8.0 % Basophils (%) (Auto) 0.8 0.0-5.0 % Neutrophils # (Auto) 3.7 1.8-7.7 K/uL Lymphocytes # (Auto) 1.4 1.0-4.8 K/uL Monocytes # (Auto) 0.9 0.1-1.0 K/uL Eosinophils # (Auto) 0.05 0.00-0.70 K/uL Basophils # (Auto) 0.05 0.00-0.20 K/uL Absolute Immature Granulocyte (auto 0.05 0-1 K/uL Nucleated Red Blood Cells 0.0 0.0-0.19 % Chemistry Labs: Test 08/10/25 09:27 Range/Units Sodium Level 136 136-145 mmol/L Potassium Level 4.1 3.5-5.1 mmol/L Chloride Level 102 101-111 mmol/L Carbon Dioxide Level 23 21-32 mmol/L Blood Urea Nitrogen 37 H 7-18 mg/dL Creatinine 2.3 H 0.5-1.3 mg/dL Glomerular Filtration Rate Calc 29 >90 mL/min Random Glucose 291 H 70-105 mg/dL Total Calcium 8.7 8.5-10.1 mg/dL Total Bilirubin 0.2 0.2-1.0 mg/dL Aspartate Amino Transf (AST/SGOT) 22 10-37 U/L Alanine Aminotransferase (ALT/SGPT) 29 12-78 U/L Alkaline Phosphatase 57 50-136 U/L Troponin I High Sensitivity 6 4-75 ng/L Total Protein 6.9 6.0-8.3 g/dL Albumin 3.3 L 3.5-5.0 g/dL Lipase 119 H 16-77 U/L DIAGNOSTICS / RADIOLOGY RESULTS: [ ] PLAN Telemetry monitoring. Med surge patient status Clear liquid diet Sliding scale insulin coverage Checking hemoglobin A1c with a.m. labs IV hydration NS 100 mL an hour Consult wound care physician patient has untreated decubitus ulcer present on admission Review and reconcile patient's home medication Avoid nephrotoxic agents PT to evaluate treat with discharge recommendation Ordered electrolyte replacement protocol GI prophylactic Protonix 40 mg IV daily DVT prophylaxis Lovenox 30 mg subQ daily Further orders per course of stay A.m. labs including hemoglobin A1c CBC, CMP, Mag level, phos level, calcium level, ammonia level, TSH level, and albumin level. NEURO: Minimize central acting medications as possible. Maintain fall precautions, adequate lighting during the day PULMONARY: Supplemental 02 as needed. Maintain aspiration precautions at all times CARDIOVASCULAR: Follow hemodynamics. Vital signs per facility protocol GI & NUTRITION: Continue with nutritional support. Continue stool softeners and laxatives as needed. KIDNEYS & ELECTROLYTES: Strict monitoring of intake, output and overall fluid balance. Avoid nephrotoxic medications to the extent possible. Medications to be dosed according to renal function. Monitor electrolytes and replace as needed ENDOCRINE: Maintain blood glucose between 100-180 at all times. Hypoglycemia protocol in place INFECTIOUS DISEASE: Trend temperature, WBC and procalcitonin level Follow cultures, deescalate antibiotics as soon as possible. Panculture if new onset fever ONCOLOGY/HEMATOLOGY/COAGULATION: Monitor for s/s of bleeding Monitor hemoglobin, coagulation studies as needed SKIN: Pressure ulcer prevention per facility protocol Specialty mattress ORTHO/REHAB: Continue PT/OT Prophylaxis: Continue GI and DVT prophylaxis Code Status: Full Resuscitation Disposition: TBD Other: Total patient care time exceeds 35 minutes excluding all procedures. HARIS RICHARDS AGACNP Aug 10, 2025 11:07
[2025-08-10] MEDS ORDERED: guaiFENesin-DM 200/20MG 10ML PO PRN (11:30)
[2025-08-10] MEDS ORDERED: LACTULOSE 20 GM/30 ML UDCUP PO PRN (11:30)
[2025-08-10] MEDS ORDERED: NITROGLYCERIN 0.4 MG SL TAB SL PRN (11:30)
[2025-08-10] MEDS ORDERED: BENZOCAINE/MENTH/CETYLPYRD CL 1 EACH LOZENGE MM PRN (11:30)
[2025-08-10] MEDS ORDERED: ARTIFICAL TEARS SOL 15 ML OP PRN (11:30)
[2025-08-10] MEDS ORDERED: LIDOCAINE HCL 2% VISCOUS 30 ML, MAG/ALUM/SIMETH 30ML 30 ML, DICYCLOMINE HCL 20 MG PO PRN (11:30)
[2025-08-10] MEDS ORDERED: MAG/ALUM/SIMETH 30 ML UDCUP PO PRN (11:30)
[2025-08-10 11:51] LABS: BAND NEUTROPHILS % (MANUAL) 2 % (0-2); LYMPHOCYTES % (MANUAL) 25 % (22-44); MAN.DIFF COMMENT-IMPRESSION MANUAL DIFFERENTIAL; MONOCYTES % (MANUAL) 9 % (2-9); REACTIVE LYMPHOCYTES 2 % (0-0); SEGMENTED NEUTROPHILS % 62 % (40-70)
[2025-08-10 11:52] LABS: PLATELET MORPHOLOGY COMMENT ADEQUATE; WBC MORPHOLOGY VACUOLATION 1+
--- NOTE | 2025-08-10 16:28 | NUR ---
RODNEY CARBALLO AT BEDSIDE
--- NOTE | 2025-08-10 16:29 | NUR ---
REPORT GIVEN TO NURSE CASTILLO
[2025-08-10 16:50] VITALS: BP 135/65; PULSE 75; RESP 18; TEMP 98; O2SAT 90
[2025-08-10] MEDS ORDERED: MONT-39 PO (18:16)
[2025-08-10] MEDS ORDERED: FOLI0.8T22 PO (18:16)
[2025-08-10] MEDS ORDERED: CHOL100020 PO (18:16)
[2025-08-10] MEDS ORDERED: OMEP20CA12 PO (18:16)
[2025-08-10] MEDS ORDERED: METF-444 PO (18:16)
[2025-08-10] MEDS ORDERED: PoTASSium chl 10% ELIXIR 20MEQ 20 MEQ/15 ML UDCUP PO PRN (19:00)
[2025-08-10] MEDS ORDERED: PoTASSium chloRIDE 20MEQ ER 20 MEQ ERTAB PO PRN (19:00)
[2025-08-10 20:00] VITALS: BP 131/64; PULSE 74; RESP 18; TEMP 97.9; O2SAT 98
[2025-08-10] MEDS: LOPERAMIDE HCL 2 MG CAP PO PRN (20:39)
[2025-08-10] MEDS: ENOXAPARIN SODIUM 30 MG/0.3 ML SQ SCH (20:43)
[2025-08-10] MEDS: 0.9%NACL 1000ML 1,000 ML IV SCH (20:43)
[2025-08-11] VITALS (7 sets, daily range): BP systolic 125–152; BP diastolic 62–72; PULSE 61–77; RESP 17–18; TEMP 97.5–98; O2SAT 94–98
[2025-08-11 05:44] LABS: NUCLEATED RED BLOOD CELLS 0.0 % (0.0-0.19); PLATELET COUNT (AUTO) 196.0 K/uL (130-400); RED BLOOD CELL COUNT(AUTO) 3.44 MIL/uL (4.50-6.20); RED CELL DISTRIBUTION WIDTH 13.2 % (11.0-15.5); WHITE BLOOD COUNT (AUTO) 4.6 K/uL (4.8-10.8)
[2025-08-11 06:06] LABS: ASPARTATE AMINOTRANSFERASE 26.0 U/L (10-37); CREATININE 1.2 mg/dL (0.5-1.3); GLOMERULAR FILTR. RATE CALC 62.0 mL/min (>90); GLUCOSE,RANDOM 137.0 mg/dL (70-105); PHOSPHORUS 3.4 mg/dL (2.5-4.9); SODIUM SERUM 141.0 mmol/L (136-145); TOTAL PROTEIN, SERUM 5.8 g/dL (6.0-8.3); UREA NITROGEN, BLOOD 22.0 mg/dL (7-18)
--- NOTE | 2025-08-11 06:42 | NUR ---
BIS PAGED TO NOTIFY OF POTASSIUM LEVEL OF 3.6 AND MAG LEVEL OF 1.8. PENDING CALL BACK.
--- NOTE | 2025-08-11 06:51 | NUR ---
ORDERS ELECTROLYTE PROTOCOL REPLACEMENT ORDERS GIVEN VIA TELEPHONE. ORDERS ENTERED
[2025-08-11] MEDS ORDERED: PoTASSium chloRIDE 20MEQ ER 20 MEQ ERTAB PO PRN (07:00)
[2025-08-11] MEDS ORDERED: MAGNESIUM 2GM PREMIX 50ML 50 ML IV PRN (07:00)
[2025-08-11] MEDS ORDERED: PoTASSium chloRIDE 10MEQ SR 10 MEQ/TAB TAB.SR.24H PO PRN (07:00)
--- NOTE | 2025-08-11 08:08 | NUR ---
DCP: HOME with family sw met with pt and son Darian Quinn [phone]. Per son, pt lives at son Robb quinn's [phone] home. Pt requires assistance with "all", ADLS, home management, transportation,meal prep, ambulation. Darian is provider 32hrs a week. Pt has a cane, w/c, shower chair. no HH or D services. PCP is Cheyanne Menezes and uses [facility] for rx. Son states they will take p home at discharge
[2025-08-11] MEDS: MAGNESIUM 2GM PREMIX 50ML 50 ML IV PRN (13:05)
[2025-08-11] MEDS: PoTASSium chl 10% ELIXIR 20MEQ 20 MEQ/15 ML UDCUP PO PRN (13:06)
--- NOTE | 2025-08-11 13:35 | NUR ---
[facility] Consult: Patient assessed by wound healing team. See wound assessment. Assessment and recommendations provided to primary nurse. Education provided to patient r/t to wound, and pressure ulcer prevention/management.
--- NOTE | 2025-08-11 15:14 | PN ---
[facility] PROGRESS NOTE Date Patient Seen: Aug 11, 2025 Time of Visit: 1242 Supervising Physician: Dr. Villanueva Primary Care Physician: Dr. Rosana Menezes Outpatient Specialists: [ ] Inpatient Consults: Dr José Miguel Villanueva (Wound Care) PROBLEM LIST: JAZMINE on ATN Gastroenteritis Sacral decubitus ulcer, POA, secondary to immobility Generalized body weakness COPD, undiagnosed, untreated CHRONIC PROBLEM LIST: Hypertension Coronary artery disease Hyperlipidemia Diabetes mellitus type 2 Cerebrovascular disease s/p cerebrovascular accident approximately 1999 resulting in left-sided hemiplegia INTERVAL HISTORY: 08/11 patient was seen and examined by bedside with no family present. Patient's serum creatinine level noted to be trending down today 1.2 upon admission 2.3 we will continue to monitor closely. Patient currently pending evaluation from wound care we will follow up with the recommendations. Patient at time of visit denies any chest pain or shortness of breadth. Denies any nausea vomiting or abdominal pain. We will follow up tomorrow morning if cleared by Wound Care plan is for discharge tomorrow morning REVIEW OF SYSTEMS: 12 point ROS reviewed with patient. Pertinent positives mentioned above. Otherwise negative. PHYSICAL EXAM: GENERAL: alert, weak, awake oriented x 3 HEENT: EOMI, Sclera non icteric, moist mucosa dry oral mucosa NECK: Supple, no JVD, trachea midline LUNGS: Breath sounds over diminished with rales and rhonchi scattered throughout no stridor present. HEART: Regular rate and rhythm. Normal S1 and S2, without murmurs ABD: Abdomen soft, nontender. Bowel sounds present EXT: No clubbing cyanosis or edema left-sided hemiplegia status post CVA 1999 NEURO: Alert and oriented to person, follows commands Vital Signs (last 8hr) Date Time Temp Pulse Resp B/P (MAP) Pulse Ox O2 Delivery O2 Flow Rate FiO2 08/11/25 12:00 97.9 70 18 132/67 98 Room Air 08/11/25 08:00 97.5 68 18 142/72 96 Room Air LABS: Hematology Labs: Test 08/11/25 05:33 08/10/25 09:27 Range/Units White Blood Count 4.6 L 4.8-10.8 K/uL Red Blood Count 3.44 L 4.50-6.20 MIL/uL Hemoglobin 11.0 L 14.0-18.0 g/dL Hematocrit 32.0 L 42-54 % Mean Corpuscular Volume 93.0 79-99 fL Mean Corpuscular Hemoglobin 32.0 27.0-33.0 pg Mean Corpuscular Hemoglobin Concent 34.4 32.0-36.0 g/dL Red Cell Distribution Width 13.2 11.0-15.5 % Platelet Count 196 # 130-400 K/uL Mean Platelet Volume 9.8 7.5-10.5 fL Nucleated Red Blood Cells 0.0 0.0-0.19 % Immature Granulocyte % (Auto) 0.8 0-1 % Neutrophils (%) (Auto) 60.9 40.0-77.0 % Lymphocytes (%) (Auto) 22.5 21.0-51.0 % Monocytes (%) (Auto) 14.2 H 3.0-13.0 % Eosinophils (%) (Auto) 0.8 0.0-8.0 % Basophils (%) (Auto) 0.8 0.0-5.0 % Neutrophils # (Auto) 3.7 1.8-7.7 K/uL Lymphocytes # (Auto) 1.4 1.0-4.8 K/uL Monocytes # (Auto) 0.9 0.1-1.0 K/uL Eosinophils # (Auto) 0.05 0.00-0.70 K/uL Basophils # (Auto) 0.05 0.00-0.20 K/uL Absolute Immature Granulocyte (auto 0.05 0-1 K/uL Segmented Neutrophils % 62 40-70 % Band Neutrophils % 2 0-2 % Lymphocytes % (Manual) 25 22-44 % Monocytes % (Manual) 9 2-9 % Differential Comment MANUAL DIFFERENTIAL Reactive Lymphocytes 2 H 0-0 % White Cell Morphology Comment VACUOLATION 1+ Platelet Morphology Comment ADEQUATE Red Blood Cell Morphology NORMAL Chemistry Labs: Test 08/11/25 12:17 08/11/25 05:33 08/10/25 09:27 08/10/25 04:27 Range/Units Whole Blood Glucose 152 H 70-110 MG/DL Sodium Level 141 136-145 mmol/L Potassium Level 3.6 3.5-5.1 mmol/L Chloride Level 110 101-111 mmol/L Carbon Dioxide Level 23 21-32 mmol/L Blood Urea Nitrogen 22 H 7-18 mg/dL Creatinine 1.2 0.5-1.3 mg/dL Glomerular Filtration Rate Calc 62 >90 mL/min Random Glucose 137 #H 70-105 mg/dL Total Calcium 8.1 L 8.5-10.1 mg/dL Phosphorus Level 3.4 2.5-4.9 mg/dL Magnesium Level 1.80 1.80-2.40 mg/dL Total Bilirubin 0.3 # 0.2-1.0 mg/dL Aspartate Amino Transf (AST/SGOT) 26 10-37 U/L Alanine Aminotransferase (ALT/SGPT) 26 12-78 U/L Alkaline Phosphatase 46 L 50-136 U/L Ammonia 20 11-32 umol/L Total Protein 5.8 L 6.0-8.3 g/dL Albumin 2.5 #L 3.5-5.0 g/dL Thyroid Stimulating Hormone (TSH) 1.18 0.36-3.74 uIU/mL Troponin I High Sensitivity 6 4-75 ng/L Lipase 119 H 16-77 U/L Hemoglobin A1c 7.5 H 4.0-6.0 % Estimated Average Glucose (eAG) 169 H 70-126 mg/dL DIAGNOSTICS / RADIOLOGY RESULTS: na PLAN Follow up with the Wound care's recommendations Continue to monitor serum creatinine level closely Repeat BNP tomorrow morning Continue NS at 100 mL NEURO: Minimize central acting medications as possible. Maintain fall precautions, adequate lighting during the day PULMONARY: Supplemental 02 as needed. Maintain aspiration precautions at all times CARDIOVASCULAR: Follow hemodynamics. Vital signs per facility protocol GI & NUTRITION: Continue with nutritional support. Continue stool softeners and laxatives as needed. KIDNEYS & ELECTROLYTES: Strict monitoring of intake, output and overall fluid balance. Avoid nephrotoxic medications to the extent possible. Medications to be dosed according to renal function. Monitor electrolytes and replace as needed ENDOCRINE: Maintain blood glucose between 100-180 at all times. Hypoglycemia protocol in place INFECTIOUS DISEASE: Trend temperature, WBC and procalcitonin level Follow cultures, deescalate antibiotics as soon as possible. Panculture if new onset fever ONCOLOGY/HEMATOLOGY/COAGULATION: Monitor for s/s of bleeding Monitor hemoglobin, coagulation studies as needed SKIN: Pressure ulcer prevention per facility protocol Specialty mattress ORTHO/REHAB: Continue PT/OT Prophylaxis: Continue GI and DVT prophylaxis Code Status: Full Resuscitation Disposition: TBD Other: Case discussed with supervising physician plan of care agreed upon SOFY DELGADO Aug 11, 2025 15:14
--- NOTE | 2025-08-11 16:54 | CONS ---
CONSULTATION NOTE Date of Service: Aug 11, 2025 Reason for Consultation: [ ] Requesting Physician: [ ] HISTORY OF PRESENT ILLNESS: [ ] REVIEW OF SYSTEMS CONSTITUTIONAL: Denies fever, chills, or fatigue. HEAD/FACE: No signs of trauma. EENT: Denies eye pain, blurred vision, double vision, or light sensitivity. RESPIRATORY: Denies shortness of breath, cough, wheezing CARDIOVASCULAR: Denies chest pain, palpitation, syncope GASTROINTESTINAL/ABDOMINAL: Denies abdominal pain, constipation, diarrhea, nausea or vomiting GENITOURINARY: Denies dysuria or hematuria. MUSCULOSKELETAL: Denies joint pain, tenderness, or trauma. INTEGUMENTARY: Denies rash or itchiness NEUROLOGICAL/PSYCH: Denies anxiety, depression, heat or cold intolerance. PAST MEDICAL HISTORY: [ ] PAST SURGICAL HISTORY: [ ] PAST SOCIAL HISTORY: [ ] FAMILY HISTORY: [ ] Coded Allergies: No Known Drug Allergies (Unverified Allergy, Unknown, 04/07/19) PHYSICAL EXAM EYES: Anicteric. Pupils equal and reactive. HENT: No oral thrush seen, moist Oral mucosa NECK: Supple, no JVD or thyromegaly. LUNGS: Good air entry. No rales, no rhonchi. CARDIOVASCULAR: S1, S2 regular. No murmur heard. ABDOMEN: Soft, non tender, bowel sounds present, no organomegaly CENTRAL NERVOUS SYSTEM: Awake, alert, oriented x 3. No focal deficits. SKIN: No rashes, no swelling. LYMPHATICS: No peripheral lymphadenopathy MUSCULOSKELETAL: No joint swelling, erythema or tenderness. EXTREMITIES: No cyanosis or clubbing BACK: No deformity, no pressure ulcer. GENITOURINARY: No dysuria or hematuria Vital Sign (Last 24 Hours) 08/11/25 08/11/25 12:00 15:40 Temp 97.9 Pulse 70 Resp 18 B/P (MAP) 132/67 Pulse Ox 98 O2 Delivery Room Air* O2 Flow Rate 0 FiO2 21 Intake & Output (last 24hrs) 08/10/25 08/10/25 08/11/25 15:00 23:00 07:00 Intake Total 1250.0 ml Balance 1250.0 ml LABS: Laboratory: Test 08/11/25 15:43 08/11/25 05:33 08/10/25 10:06 08/10/25 09:27 Range/Units Whole Blood Glucose 129 H 70-110 MG/DL White Blood Count 4.6 L 4.8-10.8 K/uL Red Blood Count 3.44 L 4.50-6.20 MIL/uL Hemoglobin 11.0 L 14.0-18.0 g/dL Hematocrit 32.0 L 42-54 % Mean Corpuscular Volume 93.0 79-99 fL Mean Corpuscular Hemoglobin 32.0 27.0-33.0 pg Mean Corpuscular Hemoglobin Concent 34.4 32.0-36.0 g/dL Red Cell Distribution Width 13.2 11.0-15.5 % Platelet Count 196 # 130-400 K/uL Mean Platelet Volume 9.8 7.5-10.5 fL Nucleated Red Blood Cells 0.0 0.0-0.19 % Sodium Level 141 136-145 mmol/L Potassium Level 3.6 3.5-5.1 mmol/L Chloride Level 110 101-111 mmol/L Carbon Dioxide Level 23 21-32 mmol/L Blood Urea Nitrogen 22 H 7-18 mg/dL Creatinine 1.2 0.5-1.3 mg/dL Glomerular Filtration Rate Calc 62 >90 mL/min Random Glucose 137 #H 70-105 mg/dL Total Calcium 8.1 L 8.5-10.1 mg/dL Phosphorus Level 3.4 2.5-4.9 mg/dL Magnesium Level 1.80 1.80-2.40 mg/dL Total Bilirubin 0.3 # 0.2-1.0 mg/dL Aspartate Amino Transf (AST/SGOT) 26 10-37 U/L Alanine Aminotransferase (ALT/SGPT) 26 12-78 U/L Alkaline Phosphatase 46 L 50-136 U/L Ammonia 20 11-32 umol/L Total Protein 5.8 L 6.0-8.3 g/dL Albumin 2.5 #L 3.5-5.0 g/dL Thyroid Stimulating Hormone (TSH) 1.18 0.36-3.74 uIU/mL Urine Color YELLOW YELLOW Urine Appearance CLOUDY H CLEAR Urine pH 5.0 5.0-8.0 Urine Specific [place] 1.028 1.001-1.031 Urine Protein 30 H NEGATIVE mg/dL Urine Glucose (UA) 50 H NEGATIVE mg/dL Urine Ketones 5 H NEGATIVE mg/dL Urine Occult Blood SMALL H NEGATIVE Urine Nitrate NEGATIVE NEGATIVE Urine Bilirubin NEGATIVE NEGATIVE mg/dL Urine Urobilinogen 2.0 H 0.2-1.0 mg/dL Urine Leukocyte Esterase NEGATIVE NEGATIVE Dereck/uL Urine RBC 2-5 H 0-1 /HPF Urine WBC 11-25 H 0-1 /HPF Urine Squamous Epithelial Cells RARE 0-2 /HPF Urine Non-Squamous Epithelial Cells 1 0-2 /HPF Urine Bacteria None None Seen /HPF Urine Hyaline Casts 11-25 H 0-1 /LPF /LPF Urine Yeast with Hyphae RARE None Seen /HPF Immature Granulocyte % (Auto) 0.8 0-1 % Neutrophils (%) (Auto) 60.9 40.0-77.0 % Lymphocytes (%) (Auto) 22.5 21.0-51.0 % Monocytes (%) (Auto) 14.2 H 3.0-13.0 % Eosinophils (%) (Auto) 0.8 0.0-8.0 % Basophils (%) (Auto) 0.8 0.0-5.0 % Neutrophils # (Auto) 3.7 1.8-7.7 K/uL Lymphocytes # (Auto) 1.4 1.0-4.8 K/uL Monocytes # (Auto) 0.9 0.1-1.0 K/uL Eosinophils # (Auto) 0.05 0.00-0.70 K/uL Basophils # (Auto) 0.05 0.00-0.20 K/uL Absolute Immature Granulocyte (auto 0.05 0-1 K/uL Segmented Neutrophils % 62 40-70 % Band Neutrophils % 2 0-2 % Lymphocytes % (Manual) 25 22-44 % Monocytes % (Manual) 9 2-9 % Differential Comment MANUAL DIFFERENTIAL Reactive Lymphocytes 2 H 0-0 % White Cell Morphology Comment VACUOLATION 1+ Platelet Morphology Comment ADEQUATE Red Blood Cell Morphology NORMAL Troponin I High Sensitivity 6 4-75 ng/L Lipase 119 H 16-77 U/L Test 08/10/25 04:27 Range/Units Hemoglobin A1c 7.5 H 4.0-6.0 % Estimated Average Glucose (eAG) 169 H 70-126 mg/dL DIAGNOSTICS / RADIOLOGY: [ ] PROBLEM LIST : Medical Problems: Pressure Ulcer of right buttock, stage 2 PLAN: Wound care to right buttock- apply Venelex BID and PRN Waffle Mattress Keep wounds clean and dry Offloading/reposition q 2 hours Comorbidities per primary care team Further Management per hospital course. Thank You for the consult and allowing us to participate in the care of this pa tient. LISA MARTINEZ OFFICE CLERK Aug 11, 2025 16:54
[2025-08-11] MEDS: BALSAM PERU/CASTOR OIL 60 GM TUBE TP SCH (21:18)
[2025-08-12] VITALS: BP 152/95; PULSE 82; RESP 17; TEMP 97.6
[2025-08-12 04:00] VITALS: BP 152/74; PULSE 68; RESP 17; TEMP 97.7
[2025-08-12 04:42] LABS: CREATININE 0.8 mg/dL (0.5-1.3); GLOMERULAR FILTR. RATE CALC 91.0 mL/min (>90); GLUCOSE,RANDOM 109.0 mg/dL (70-105); SODIUM SERUM 137.0 mmol/L (136-145); UREA NITROGEN, BLOOD 11.0 mg/dL (7-18)
[2025-08-12 07:54] VITALS: BP 146/74; PULSE 58; RESP 18; TEMP 97.8
[2025-08-12 08:00] VITALS: O2SAT 98
[2025-08-12 11:35] VITALS: BP 155/74; PULSE 50; RESP 20; TEMP 98.1
--- NOTE | 2025-08-12 14:27 | DS ---
[facility] DISCHARGE SUMMARY Date Patient Seen: Aug 12, 2025 Time of Visit: 1216 Supervising Physician: Dr. Hensley Primary Care Physician: Dr. Rosana Menezes Outpatient Specialists: [ ] Inpatient Consults: Dr José Miguel Villanueva (Wound Care) PROBLEM LIST: JAZMINE on ATN, resolved Gastroenteritis, resolved Sacral decubitus ulcer, POA, secondary to immobility Generalized body weakness, resolved back to baseline COPD, undiagnosed, untreated CHRONIC PROBLEM LIST: Hypertension Coronary artery disease Hyperlipidemia Diabetes mellitus type 2 Cerebrovascular disease s/p cerebrovascular accident approximately 1999 resulting in left-sided hemiplegia HOSPITAL COURSE: HPI (per admitting provider)Chelsea Kaufman is an 75-year-old gentleman patient of PCP, Dr.Carilna Menezes, health history: Hypertension, hyperlipidemia, coronary artery disease, diabetes mellitus type 2, and cerebrovascular disease s/p cerebrovascular accident approximately 1999 resulting in left side hemiplegia presents to the emergency department today, 08/10/2025 for generalized body weakness. Patient's son, patient's caregiver reports onset three days and progressively worsening. Nausea, generalized body weakness, and nauseousness has progressively worsened. Patient denies fever, chills, recent ill person contact, chest pain, shortness of the breath, constipation, recent weight loss, weight gain, and changes in urine and stool co chelita and consistency. Vital signs: Temperature 98.2, pulse 91, respirations 18, blood pressure 146/62, oxygen saturation 99% on room air, FiO2, 21. Laboratory results: WBC 6.1, hemoglobin 12.7, hematocrit 37.1, platelets 271, sodium 136, potassium 4.1, carbon dioxide 23, BUN 37, creatinine 2.3, GFR 29, random blood glucose 291, total calcium 8.7, AST 22, ALT 29, troponin six, al bumin 3.3, lipase 119. Urine, UA: Leukocyte esterase negative, nitrate negative, occult blood negative. EKG: Rhythm: Sinus rhythm. Rate 86 beats per minute. Interpretation no ST wave elevation or depression observed. This is per ED provider's note. Patient was assessed in seen as well as examined in ED [place] #9. The patient was awake alert and oriented, resting comfortably in bed, appears in no acute distress, and presents with a sacral decubitus ulcer. The patient's son reports that the patient is bed-bound and requires total assist at home. Patient was seen and examined by bedside with no family present. Patient at time of visit has no specific complaints. Denies any chest pain or shortness of breadth. Denies any nausea vomiting or abdominal pain. He is tolerating p.o. diet. He is having bowel movements. Patient is initially admitted due to JAZMINE likely secondary to ATN. Patient's serum creatinine level is back to baseline this morning 0.8 upon admission 2.3. Instructed patient will be getting d ischarged today and will need to follow up with PCP within 3-5 days upon discharge. Patient voices understanding agrees with plan has no questions at this time The patient was treated for the following problems: ACTIVE PROBLEM LIST FOR THE HOSPITALIZATION: CHRONIC PROBLEMS: continue previous management per PCP unless otherwise indicated BOWL ATTENDANT FINDINGS/RECOMMENDATIONS: Na PROCEDURES: as mentioned above DISCHARGE MEDICATIONS: Pt hemodynamically stable and afebrile at time of discharge. PCP notified of patients admission, hospital course and discharge. Continued Medications: Amlodipine Besylate (Amlodipine Besylate) 10 Mg Tablet 10 MG PO DAILY, TAB Aspirin (Aspirin 81MG Chew Tab) 81 Mg Tab.chew 162 MG PO DAILY for 14 Days, #14 TAB.CHEW 0 Refills Cholecalciferol (Vitamin D3) (Vitamin D3) 25 Mcg (1000 Unit) Tablet 1 TAB PO DAILY for 30 Days, #30 TAB 0 Refills Folic Acid/Vitamin B Comp W-C (Shelly-Flaca Tablet) 0.8 Mg Tablet 0.8 MG PO DAILY, TAB Lisinopril (Lisinopril) 40 Mg Tablet 40 MG PO DAILY, TAB Metformin HCl (Metformin HCl) 500 Mg Tablet 1 TAB PO BID for 30 Days, #60 TAB 0 Refills Montelukast Sodium (Montelukast Sodium) 10 Mg Tablet 1 TAB PO DAILY for 30 Days, #30 TAB 0 Refills Omeprazole (Omeprazole) 20 Mg Capsule.dr 1 CAP PO QODAY for 30 Days, #30 CAP 0 Refills Oxybutynin Chloride (Oxybutynin Chloride) 5 Mg Tablet 5 MG PO BID, TAB Simvastatin (Simvastatin) 20 Mg Tablet 20 MG PO DAILY, TAB PHYSICAL EXAM: GENERAL: alert, weak, awake oriented x 3 HEENT: EOMI, Sclera non icteric, moist mucosa dry oral mucosa NECK: Supple, no JVD, trachea midline LUNGS: Breath sounds over diminished with rales and rhonchi scattered throughout no stridor present. HEART: Regular rate and rhythm. Normal S1 and S2, without murmurs ABD: Abdomen soft, nontender. Bowel sounds present EXT: No clubbing cyanosis or edema left-sided hemiplegia status post CVA 1999 NEURO: Alert and oriented to person, follows commands FOLLOW-UP: Follow-up with PCP in 2-3 days RECOMMENDATIONS: See Discharge Instructions This case was seen and discussed with my supervising physician. 35 minutes spent on discharge process, including evaluation of the patient, discussion with nursing staff, medication reconciliation and follow-up appointments SOFY DELGADO YARN WINDER Aug 12, 2025 14:26
--- NOTE | 2025-08-12 16:51 | NUR ---
DISCHARGE PATIENT WAS DISCHARDED HOME. PERIPHEAL IV WAS DISCONTUNUED. DISCHARGE INSTRUCTIONS WERE GIVEN NO NEW MED ORDERS WERE SENT IN TO PATIENT'S PHARMACY LET CAREGIVER (SON) KNOW PATIENT NEEDS TO FOLLOW UP WITH PCP IN 2-3 DAYS AND WITH WOUND CARE WITH DR. ANTON PLASENCIA WELL. ALL QUESTIONS ANSWERED WOUND PICTURE WAS TAKEN OF SACREAL AREA ALL BELONINGS WERE TAKEN WITH PATIENT
== END 2025-08-12 15:50 | disposition home or self-care (01) ==
LOC: EDH 08:42 → EDHIP 11:01 → 4CH 16:50
PROVIDERS: ADMIT Internal Medicine; ATTEND Internal Medicine
DX: N17.0 Acute kidney failure with tubular necrosis (principal); L89.312 Pressure ulcer of right buttock, stage 2; I25.10 Atherosclerotic heart disease of native coronary artery without angina pectoris; E11.9 Type 2 diabetes mellitus without complications; A08.4 Viral intestinal infection, unspecified; E78.00 Pure hypercholesterolemia, unspecified; I10 Essential (primary) hypertension; E86.0 Dehydration; Z86.73 Personal history of transient ischemic attack (TIA), and cerebral infarction without residual deficits; Z87.891 Personal history of nicotine dependence
CPT/HCPCS: 96372 ×3; 96361; 96375; 99284; 83036; 84484; 80053 ×2; 83690; 85025; 87086; 82948 ×7; 81001; 36415 ×3; 93005; 96376 ×2; 96365; 84443; 83735; 84100; 82140; 85027; 80048; 97161; 97116; J1815; G0378 ×53; J1650 ×3; J2470 ×3; J3475; J7030